=== PATIENT | male | born 1970 | race Two or more races ===

== ENCOUNTER 2020-10-29 07:51 | Outpatient (REF) | payer OTHER, SELFPAY | END 2020-10-29 07:52 | disposition home or self-care (01) | LOC: HO.LAB 07:51 | PROVIDERS: PCP Internal Medicine; Visit Provider Internal Medicine | DX: Z13.89 Encounter for screening for other disorder (principal) ==

== ENCOUNTER 2021-11-24 06:56 | Outpatient (REF) | payer OTHER, SELFPAY ==
[2021-11-24 07:21] LABS: MANUAL DIFF FLAG NO
[2021-11-24 07:39] LABS: Basophils Absolute Auto 0.1 X10*3/uL (0.0-0.2); Basophils Percent Auto 1.6 % (0-2); Eosinophils Absolute Auto 0.2 X10*3/uL (0.0-0.4); Eosinophils Percent Auto 6.3 % (0-4); Hematocrit 42.5 % (42.0-52.0); Hemoglobin 14.6 g/dl (14.0-18.0); Imm Gran Abs Auto 0.01 X10*3/uL (0.00-0.03); Imm Gran Pct Auto 0.3 % (0.0-0.4); Lymphocytes Absolute Auto 1.7 X10*3/uL (1.2-4.9); Lymphocytes Percent Auto 44.4 % (20-40); Mean Corpuscular HGB Conc 34.4 g/dl (31.0-36.0); Mean Corpuscular Hemoglobin 31.3 pg (27.0-33.0); Mean Corpuscular Volume 91.2 fL (80.0-98.0); Mean Platelet Volume 9.1 fL (9.4-12.4); Monocytes Absolute Auto 0.5 X10*3/uL (0.1-1.2); Monocytes Percent Auto 12.1 % (2-11); Neutrophils Absolute Auto 1.4 x10*3/uL (2.0-8.3); Neutrophils Percent Auto 35.3 % (45-73); Platelet Count 267 X10*3/uL (160-400); Red Blood Count 4.66 X10*6/uL (4.60-5.80); Red Cell Distribution Width 13.1 % (11.0-16.0); White Blood Count 3.8 X10*3/uL (4.8-10.8)
[2021-11-24 08:17] LABS: Alanine Aminotransferase 20 U/L (0-40); Albumin Level 4.1 g/dL (3.5-5.0); Alkaline Phosphatase 49 U/L (39-117); Anion Gap 12 (12-20); Aspartate Amino Transferase 28 U/L (5-37); Bilirubin Total 0.3 mg/dL (0.0-1.0); Blood Urea Nitrogen 19 mg/dL (9-16); Calcium 9.7 mg/dL (8.4-10.2); Carbon Dioxide 28 mmol/L (22-29); Chloride 106 mmol/L (96-108); Cholesterol 208 mg/dL; Estimated Glomerular Filt Rate > 60; Glucose Random 112 mg/dL (60-115); HDL Cholesterol 88 mg/dL; LDL Cholesterol Calculated 112 mg/dl; Potassium 5.1 mmol/L (3.3-5.1); Sodium 141 mmol/L (135-145); Triglycerides 44 mg/dL
[2021-11-24 08:38] LABS: Free T4 (Free Thyroxine) 0.83 ng/dL (0.71-1.85); Thyroid Stimulating Hormone 2.38 uIU/mL (0.32-4.0)
[2021-11-24 09:34] LABS: Folate 8.4 ng/mL (> or = 4.0); Vitamin B12 310 pg/mL (200-900)
== END 2021-11-24 06:57 | disposition home or self-care (01) ==
LOC: HO.LAB 06:56
PROVIDERS: PCP Internal Medicine; Visit Provider Internal Medicine
DX: I10 Essential (primary) hypertension (principal); E78.00 Pure hypercholesterolemia, unspecified
CPT/HCPCS: 36415; 80053; 80061; 82607; 82746; 84439; 84443; 85025

== ENCOUNTER 2021-12-20 00:28 | Emergency (ER) | payer OTHER, SELFPAY ==
[2021-12-20 00:40] VITALS: PULSE 92; RESP 18; TEMP 36.4; O2SAT 94; BMI 33.5
[2021-12-20] MEDS: diphenhydrAMINE HCL 25 MG TABLET 50 MG PO ×2 (00:48→02:07)
--- NOTE | 2021-12-20 01:39 | ED.ALLEREA ---
HPI - Allergic Reaction General Chief complaint: Allergic Reaction Stated complaint: Allergic reaction Time Seen by Provider: 12/20/21 01:09 History of Present Illness HPI narrative: 51-year-old male with a history of allergic rhinitis. Patient was cutting trees today. No other changes in environment. Presented at midnight with swelling to the face redness itchiness. Denies any fever chills. No shortness of breath. No changes in speech. Patient from home. There has been no new medication. There is no change in diet. Patient is from home. Admits to drinking 2 beers which is not unusual for Wednesday night for him. No cough no congestion or upper respiratory symptoms. No diaphoresis. Related Data Home Medications Medication Instructions Recorded Confirmed naproxen 500 mg tablet 500 mg PO BID 05/22/20 11/25/21 trazodone 100 mg tablet 100 mg PO BEDTIME PRN 01/28/21 11/25/21 Previous Rx's Medication Instructions Recorded blood pressure monitor #1 ea 01/28/21 lorazepam 0.5 mg tablet 0.5 mg PO DAILY PRN anxiety 2 days 01/28/21 #2 tabs karol.stocking,thigh,reg,med #2 ea 03/12/21 loratadine 10 mg tablet 10 mg PO DAILY 90 days #90 tabs 03/14/21 fluticasone propionate 50 2 spray intranasal DAILY #48 mL 03/15/21 mcg/actuation nasal spray,suspension tramadol 50 mg tablet 50 mg PO TID PRN pain #90 tabs 05/15/21 bupropion HCl 150 mg tablet,12 hr 150 mg PO BID #180 caps 06/26/21 sustained-release docusate sodium 100 mg capsule 100 mg PO DAILY #90 caps 11/05/21 (Colace) zolpidem 10 mg tablet 10 mg PO BEDTIME PRN insomnia 30 11/05/21 days #30 tabs lisinopril 30 mg tablet 30 mg PO DAILY 30 days #30 tabs 11/25/21 diltiazem HCl 180 mg 180 mg PO DAILY #90 caps 12/09/21 capsule,extended release 24 hr omeprazole 20 mg capsule,delayed 20 mg PO DAILY #90 caps 12/09/21 release diphenhydramine HCl 25 mg capsule 25 mg PO Q8H 5 days #15 caps 12/20/21 (Benadryl) epinephrine 0.3 mg/0.3 mL 0.3 mg (0.3 mL) IM ONCE PRN 12/20/21 injection, auto-injector (EpiPen) extreme reaction #1 ea famotidine 20 mg tablet (Pepcid) 20 mg PO BID 5 days #10 tabs 12/20/21 prednisone 20 mg tablet 40 mg PO DAILY #10 tabs 12/20/21 Allergies Allergy/AdvReac Type Severity Reaction Status Date / Time No Known Allergies Allergy Verified 11/25/21 09:48 [No Known Allergies*] Review of Systems Review of Systems: Positive facial swelling positive redness Yes all other systems are reviewed and are negative [facility] Past Medical History Attestation statement: The following information was validated with the patient. Medical History Anxiety and depression Erectile dysfunction GERD (gastroesophageal reflux disease) Hypertension Insomnia Lumbar degenerative disc disease Obstructive sleep apnea Unilateral post-traumatic osteoarthritis, right knee Surgical History No pertinent past surgical history S/P right knee arthroscopy Family History Family History Father Stroke Coronary artery disease Mother Alive and well Family/Other Coronary artery disease Social History Social History Housing: Apartment Alcohol intake: current Alcohol intake frequency: holidays/special occasions only Patient Tobacco Use Status: Former Tobacco user e-Cigarette/Vaping Use: Never Used Second Hand Smoke Exposure: No Advance Directives: No service: No Current occupational status: unemployed Cognitive needs: No Hearing needs: No Vision needs: No Physical Exam ED Vital Signs: Vital Signs - 24 hr 12/20/21 00:40 12/20/21 03:18 Temperature 97.6 F Pulse Rate 92 90 Respiratory Rate 18 16 Blood Pressure 125/73 Pulse Oximetry 94 98 Oxygen Delivery Method Room Air Room Air BMI result Body Mass Index 33.5 Appearance: Alert. Oriented X3. No acute distress. Eyes: Pupils equal, round and reactive to light. ENT: Pharynx normal. Neck: Normal inspection. Neck supple. No lymph nodes noted. No crepitus CVS: Normal heart rate and rhythm. Pulses normal. Normal S1 and S2 Respiratory: No respiratory distress. Breath sounds normal. No Wheezing. No rales Abdomen: Soft and nontender. No rigidity. No distention. good BS x4 Skin: Diffuse erythematous rash. Posterior pharynx is normal. There is no mucosal membrane involvement. Extremities: No lower extremity edema. Neurovascular intact to all extremities. No Lacerations. No Rash Neuro: Oriented X 3. No motor deficit. No sensory deficit. Moving all extermities. No slurred speech MDM - Allergic Reaction MDM Narrative Medical decision making narrative: Patient monitor the emergency department for 3 hours. No acute distress lungs are clear patient is sleeping redness has subsided. We will give allergic reaction medication including steroid, Benadryl, Pepcid. EpiPen. Follow-up on an outpatient basis. Medical Records Attestation: I reviewed the patient's medical records. Lab Data Attestation: I reviewed the patient's lab results. Discharge Plan Discharge Clinical Impression: Allergic reaction Patient Disposition: Home, Self-Care Instructions: General Allergic Reaction (ED) Prescriptions: New prednisone 20 mg tablet 40 mg PO DAILY Qty: 10 0RF famotidine [Pepcid] 20 mg tablet 20 mg PO BID 5 Days Qty: 10 0RF diphenhydramine HCl [Benadryl] 25 mg capsule 25 mg PO Q8H 5 Days Qty: 15 0RF epinephrine [EpiPen] 0.3 mg/0.3 mL auto-injector 0.3 mg IM ONCE PRN (Reason: extreme reaction) Qty: 1 0RF Rx Instructions: for 2 doses No Action lorazepam 0.5 mg tablet 0.5 mg PO DAILY PRN (Reason: anxiety) 2 Days Qty: 2 0RF Rx Instructions: To be used before flight. (DME) karol.stocking,thigh,reg,med Misc See Rx Instructions .Route Qty: 2 4RF Rx Instructions: As directed 20-30 mm HG loratadine 10 mg tablet 10 mg PO DAILY 90 Days Qty: 90 0RF fluticasone propionate 50 mcg/actuation spray,suspension 2 spray intranasal DAILY Qty: 48 2RF bupropion HCl 150 mg tablet sustained-release 12 hr 150 mg PO BID Qty: 180 1RF docusate sodium [Colace] 100 mg capsule 100 mg PO DAILY Qty: 90 3RF zolpidem 10 mg tablet 10 mg PO BEDTIME PRN (Reason: insomnia) 30 Days Qty: 30 1RF omeprazole 20 mg capsule,delayed release(DR/EC) 20 mg PO DAILY Qty: 90 2RF diltiazem HCl 180 mg capsule,extended release 24hr 180 mg PO DAILY Qty: 90 1RF naproxen 500 mg tablet 500 mg PO BID trazodone 100 mg tablet 100 mg PO BEDTIME PRN (DME) blood pressure monitor Kit See Rx Instructions .ROUTE .MEDSUPPLY Qty: 1 0RF Rx Instructions: As directed tramadol 50 mg tablet 50 mg PO TID PRN (Reason: pain) Qty: 90 1RF lisinopril 30 mg tablet 30 mg PO DAILY 30 Days Qty: 30 3RF Referrals: Po,Tenzin Colón MD [Primary Care Provider] -
[2021-12-20] MEDS: predniSONE 20 MG TABLET 60 MG PO (02:07)
[2021-12-20] MEDS: Famotidine 20 MG TABLET PO (02:07)
[2021-12-20 03:18] VITALS: BP 125/73; PULSE 90; RESP 16; O2SAT 98
== END 2021-12-20 04:36 | disposition home or self-care (01) ==
PROVIDERS: Emergency Provider Emergency Medicine Emergency Medical Services; PCP Internal Medicine
DX: T78.40XA Allergy, unspecified, initial encounter (principal); X58.XXXA Exposure to other specified factors, initial encounter; I10 Essential (primary) hypertension
CPT/HCPCS: 99283; Q0163

== ENCOUNTER 2021-12-23 18:00 | Emergency (ER) | payer OTHER, SELFPAY ==
[2021-12-23 18:08] VITALS: BP 153/93; PULSE 108; RESP 18; TEMP 36.8; O2SAT 98; BMI 30.7
[2021-12-23 23:09] VITALS: BP 157/112; PULSE 85; RESP 20; O2SAT 100
--- NOTE | 2021-12-23 23:11 | ED_ITS ---
HPI - Neuro Symptoms/Deficit General Chief Complaint: Neuro Symptoms/Deficit Stated Complaint: spasms in head/no pain Time Seen by Provider: 12/23/21 20:12 Source: patient Mode of arrival: ambulatory Limitations: no limitations History of Present Illness HPI Narrative: Patient comes to the emergency room complaining of intermittent twitching/spasms on his head on the temporal side. Patient states it does hurt, once in a while he feels his skin twitching. Patient denies headache, no other neurological symptoms. Patient denies any recent illnesses Related Data Home Medications Medication Instructions Recorded Confirmed naproxen 500 mg tablet 500 mg PO BID 05/22/20 11/25/21 trazodone 100 mg tablet 100 mg PO BEDTIME PRN 01/28/21 11/25/21 Previous Rx's Medication Instructions Recorded blood pressure monitor #1 ea 01/28/21 lorazepam 0.5 mg tablet 0.5 mg PO DAILY PRN anxiety 2 days 01/28/21 #2 tabs karol.stocking,thigh,reg,med #2 ea 03/12/21 loratadine 10 mg tablet 10 mg PO DAILY 90 days #90 tabs 03/14/21 fluticasone propionate 50 2 spray intranasal DAILY #48 mL 03/15/21 mcg/actuation nasal spray,suspension tramadol 50 mg tablet 50 mg PO TID PRN pain #90 tabs 05/15/21 bupropion HCl 150 mg tablet,12 hr 150 mg PO BID #180 caps 06/26/21 sustained-release docusate sodium 100 mg capsule 100 mg PO DAILY #90 caps 11/05/21 (Colace) zolpidem 10 mg tablet 10 mg PO BEDTIME PRN insomnia 30 11/05/21 days #30 tabs lisinopril 30 mg tablet 30 mg PO DAILY 30 days #30 tabs 11/25/21 diltiazem HCl 180 mg 180 mg PO DAILY #90 caps 12/09/21 capsule,extended release 24 hr omeprazole 20 mg capsule,delayed 20 mg PO DAILY #90 caps 12/09/21 release diphenhydramine HCl 25 mg capsule 25 mg PO Q8H 5 days #15 caps 12/20/21 (Benadryl) epinephrine 0.3 mg/0.3 mL 0.3 mg (0.3 mL) IM ONCE PRN 12/20/21 injection, auto-injector (EpiPen) extreme reaction #1 ea famotidine 20 mg tablet (Pepcid) 20 mg PO BID 5 days #10 tabs 12/20/21 prednisone 20 mg tablet 40 mg PO DAILY #10 tabs 12/20/21 Allergies Allergy/AdvReac Type Severity Reaction Status Date / Time No Known Allergies Allergy Verified 12/23/21 18:06 [No Known Allergies*] Review of Systems Review of Systems: Constitutional : No Weight loss, No Fever, No Chills, No Night Sweats, No Fatigue, No Malaise ENT/Mouth : No Hearing loss, No Ear Pain, No Nasal Congestion, No Sinus Pain, No Hoarseness, No sore throat, No Rhinorrhea, No Swallowing Difficulty Eyes: No Eye Pain, No Swelling, No Redness, No Foreign Body, No Discharge, No Vision Changes Cardiovascular : No Chest Pain, No SOB, No Dyspnea on Exertion, No Orthopnea, No Edema, No Palpitations Respiratory : No Cough, No Sputum, No Wheezing, No Smoke Exposure, No Dyspnea Gastrointestinal : No Nausea, No Vomiting, No Diarrhea, No Constipation, No abdominal Pain, No Hematochezia, No Melena Genitourinary : no irregular bleeding, No Dysuria, No Urinary Frequency, No Hematuria, No Urinary Incontinence, No Urgency, No Flank Pain, No Urinary Flow Changes, No Hesitancy Musculoskeletal : No joint pain, No Myalgias, No Joint Swelling Skin : No Skin Lesions, No rash Neuro : No Weakness, No Numbness, No Paresthesias, No Loss of Consciousness, No Dizziness, No Headache, intermittent spasms/stretching of the skin/muscles in the head/temporal area bilateral Psych : No Anxiety/Panic, No Depression, No SI/HI/AH/VH, No Social Issues, Heme/Lymph: No Bruising, No Bleeding,No Lymphadenopathy Endocrine : No Polyuria, No Polydipsia, No Temperature Intolerance [facility] Past Medical History Medical History Anxiety and depression Erectile dysfunction Lumbar degenerative disc disease Obstructive sleep apnea Surgical History No pertinent past surgical history S/P right knee arthroscopy Family History Family History Father Stroke Coronary artery disease Mother Alive and well Family/Other Coronary artery disease Social History Social History Housing: Apartment Alcohol intake: current Alcohol intake frequency: holidays/special occasions only Patient Tobacco Use Status: Former Tobacco user e-Cigarette/Vaping Use: Never Used Second Hand Smoke Exposure: No Advance Directives: No Advance Directives Information Provided: No service: No Current occupational status: unemployed Cognitive needs: No Hearing needs: No Vision needs: No Physical Exam Vital Signs: Vital Signs: Last Vital Signs Temp 98.2 F 12/23/21 18:08 Pulse 63 12/24/21 01:02 Resp 16 12/24/21 01:02 BP 133/86 12/24/21 01:02 Pulse Ox 99 12/24/21 01:02 O2 Del Method 12/24/21 01:02 BMI result Body Mass Index 30.7 Const: Other: Appearance: Alert. Oriented X3. No acute distress. Eyes: Pupils equal, round and reactive to light. ENT: Pharynx normal. Neck: Normal inspection. Neck supple. No lymph nodes noted. No crepitus CVS: Normal heart rate and rhythm. Pulses normal. Normal S1 and S2 Respiratory: No respiratory distress. Breath sounds normal. No Wheezing. No rales Abdomen: Soft and nontender. No rigidity. No distention. Skin: Skin warm and dry. Normal skin color. Normal skin turgor. Extremities: No lower extremity edema. No Lacerations. No Rash Neuro: Oriented X 3. No motor deficit. No sensory deficit. Moving all extremities. No slurred speech. CN 2 through 12 grossly intact Psych: calm, cooperative, normal affect Course Course Course Narrative: At this time, patient is asymptomatic. Patient likely experiencing muscle spasms. Labs pending. Patient's hematology and chemistry lobster not show any acute pathology. ESR and CRP are not necessary at this time, patient has no temporal pain at all. Giant cell arteritis not suspected. MDM - Neuro Symptoms/Deficit Lab Data Result diagrams: 12/24/21 00:31 12/24/21 00:31 Labs: Lab Results 12/24/21 12/24/21 Range/Units 00:31 00:31 WBC 6.5 (4.8-10.8) X10*3/uL RBC 4.75 (4.60-5.80) X10*6/uL Hgb 14.5 (14.0-18.0) g/dl Hct 43.1 (42.0-52.0) % MCV 90.7 (80.0-98.0) fL MCH 30.5 (27.0-33.0) pg MCHC 33.6 (31.0-36.0) g/dl RDW 12.8 (11.0-16.0) % Plt Count 206 (160-400) X10*3/uL MPV 8.5 L (9.4-12.4) fL Immature Gran % (Auto) 0.5 H (0.0-0.4) % Neut % (Auto) 60.0 (45-73) % Lymph % (Auto) 28.6 (20-40) % Weak[place] % (Auto) 10.1 (2-11) % Eos % (Auto) 0.3 (0-4) % Baso % (Auto) 0.5 (0-2) % Lymph # (Auto) 1.9 (1.2-4.9) X10*3/uL [place] # (Auto) 0.7 (0.1-1.2) X10*3/uL Eos # (Auto) 0.0 (0.0-0.4) X10*3/uL Baso # (Auto) 0.0 (0.0-0.2) X10*3/uL Abs Immat Gran (auto) 0.03 (0.00-0.03) X10*3/uL Absolute Neuts (auto) 3.9 (2.0-8.3) x10*3/uL Absolute Nucleated RBC 0.000 (0.0-0.012) X10*3/uL Nucleated RBC % (auto) 0.0 (0.0-0.2) /100WBC Sodium 137 (135-145) mmol/L Potassium 4.5 (3.3-5.1) mmol/L Chloride 100 (96-108) mmol/L Carbon Dioxide 28 (22-29) mmol/L Anion Gap 14 (12-20) BUN 24 H (9-16) mg/dL Creatinine 0.90 (0.5-1.4) mg/dL Estim Creat Clear Calc 104.4 Estimated GFR > 60 Random Glucose 92 (60-115) mg/dL Calcium 9.4 (8.4-10.2) mg/dL Magnesium 2.2 (1.6-2.6) mg/dL Discharge Plan Discharge Clinical Impression: Muscle twitch Patient Disposition: Home, Self-Care Instructions: Muscle Spasm (ED) Additional Instructions: Please follow-up with your primary care physician tomorrow. If you have any worsening or new symptoms, please return to the emergency room or call 911 Prescriptions: No Action lorazepam 0.5 mg tablet 0.5 mg PO DAILY PRN (Reason: anxiety) 2 Days Qty: 2 0RF Rx Instructions: To be used before flight. (DME) karol.stocking,thigh,reg,med Misc See Rx Instructions .Route Qty: 2 4RF Rx Instructions: As directed 20-30 mm HG loratadine 10 mg tablet 10 mg PO DAILY 90 Days Qty: 90 0RF fluticasone propionate 50 mcg/actuation spray,suspension 2 spray intranasal DAILY Qty: 48 2RF bupropion HCl 150 mg tablet sustained-release 12 hr 150 mg PO BID Qty: 180 1RF docusate sodium [Colace] 100 mg capsule 100 mg PO DAILY Qty: 90 3RF zolpidem 10 mg tablet 10 mg PO BEDTIME PRN (Reason: insomnia) 30 Days Qty: 30 1RF omeprazole 20 mg capsule,delayed release(DR/EC) 20 mg PO DAILY Qty: 90 2RF diltiazem HCl 180 mg capsule,extended release 24hr 180 mg PO DAILY Qty: 90 1RF prednisone 20 mg tablet 40 mg PO DAILY Qty: 10 0RF famotidine [Pepcid] 20 mg tablet 20 mg PO BID 5 Days Qty: 10 0RF diphenhydramine HCl [Benadryl] 25 mg capsule 25 mg PO Q8H 5 Days Qty: 15 0RF epinephrine [EpiPen] 0.3 mg/0.3 mL auto-injector 0.3 mg IM ONCE PRN (Reason: extreme reaction) Qty: 1 0RF Rx Instructions: for 2 doses naproxen 500 mg tablet 500 mg PO BID trazodone 100 mg tablet 100 mg PO BEDTIME PRN (DME) blood pressure monitor Kit See Rx Instructions .ROUTE .MEDSUPPLY Qty: 1 0RF Rx Instructions: As directed tramadol 50 mg tablet 50 mg PO TID PRN (Reason: pain) Qty: 90 1RF lisinopril 30 mg tablet 30 mg PO DAILY 30 Days Qty: 30 3RF
[2021-12-24 00:35] LABS: MANUAL DIFF FLAG NO
[2021-12-24 00:36] LABS: Basophils Percent Auto 0.5 % (0-2); Eosinophils Percent Auto 0.3 % (0-4); Hematocrit 43.1 % (42.0-52.0); Hemoglobin 14.5 g/dl (14.0-18.0); Imm Gran Abs Auto 0.03 X10*3/uL (0.00-0.03); Imm Gran Pct Auto 0.5 % (0.0-0.4); Lymphocytes Absolute Auto 1.9 X10*3/uL (1.2-4.9); Lymphocytes Percent Auto 28.6 % (20-40); Mean Corpuscular HGB Conc 33.6 g/dl (31.0-36.0); Mean Corpuscular Hemoglobin 30.5 pg (27.0-33.0); Mean Corpuscular Volume 90.7 fL (80.0-98.0); Mean Platelet Volume 8.5 fL (9.4-12.4); Monocytes Absolute Auto 0.7 X10*3/uL (0.1-1.2); Monocytes Percent Auto 10.1 % (2-11); Neutrophils Absolute Auto 3.9 x10*3/uL (2.0-8.3); Platelet Count 206 X10*3/uL (160-400); Red Blood Count 4.75 X10*6/uL (4.60-5.80); Red Cell Distribution Width 12.8 % (11.0-16.0); White Blood Count 6.5 X10*3/uL (4.8-10.8)
[2021-12-24 00:52] LABS: Anion Gap 14 (12-20); Blood Urea Nitrogen 24 mg/dL (9-16); Calcium 9.4 mg/dL (8.4-10.2); Carbon Dioxide 28 mmol/L (22-29); Chloride 100 mmol/L (96-108); Creatinine Clr Calc Pharmacy 104.4; Estimated Glomerular Filt Rate > 60; Glucose Random 92 mg/dL (60-115); Magnesium 2.2 mg/dL (1.6-2.6); Potassium 4.5 mmol/L (3.3-5.1); Sodium 137 mmol/L (135-145)
[2021-12-24 01:02] VITALS: BP 133/86; PULSE 63; RESP 16; O2SAT 99
--- NOTE | 2021-12-24 01:25 | PC.NURSE ---
Reviewed discharge instructions with pt. pt verbalized understanding. Reported off to BHARAT Coello
--- NOTE | 2021-12-24 01:27 | PC.NURSE ---
pt a&o, no sob or chest pain. pt able to ambulate with a steady walk at discharge. Report to BHARAT Coello
== END 2021-12-24 01:28 | disposition home or self-care (01) ==
PROVIDERS: Emergency Provider Emergency Medicine; PCP Internal Medicine
DX: R25.2 Cramp and spasm (principal); I10 Essential (primary) hypertension
CPT/HCPCS: 36415; 80048; 83735; 85025; 99283; 99284

== ENCOUNTER → 2022-01-05 09:52 | Outpatient (BNVA) | payer OTHER, SELFPAY | PROVIDERS: PCP Internal Medicine; Visit Provider Dietitian, Registered | DX: R73.01 Impaired fasting glucose (principal); Z71.3 Dietary counseling and surveillance | CPT/HCPCS: 97802 ==

== ENCOUNTER 2022-01-09 09:51 | Day surgery (SDC) | payer OTHER, SELFPAY ==
[2022-01-05 15:53] VITALS: BMI 29.7
--- NOTE | 2022-01-08 09:48 | P.CONAN_ITS ---
Documented by User: Keli Birmingham NP 01/08/22 09:49 HPI - Anesthesia Eval Consult details Narrative: 51yo M for Colonoscopy [facility] Active Problems Active Problems: All Active Problems (Updated 12/25/21 @ 00:02 by Ermelinda Pearce) Headache (Acute) Obesity (BMI 30.0-34.9) (Acute) Impaired fasting blood sugar (Acute) Occasional tremors (Acute) Colon cancer screening (Acute) Epistaxis (Acute) Allergic rhinitis (Acute) Varicose veins of both lower extremities (Acute) Generalized anxiety disorder (Acute) GERD (gastroesophageal reflux disease) (Acute) Hypertension (Acute) Unilateral post-traumatic osteoarthritis, right knee (Acute) Insomnia (Acute) Past Medical History Medical History Anxiety and depression Erectile dysfunction Lumbar degenerative disc disease Obstructive sleep apnea Family History Family History Father Stroke Coronary artery disease Mother Alive and well Family/Other Coronary artery disease Surgical History Surgical History No pertinent past surgical history S/P right knee arthroscopy Social History Social History Housing: Apartment Alcohol intake: current Alcohol intake frequency: holidays/special occasions only Patient Tobacco Use Status: Former Tobacco user Smoked in Last 30 Days: No e-Cigarette/Vaping Use: Never Used Second Hand Smoke Exposure: No Use of substances other than those prescribed or required for medical reasons: No Are you DNR?: No Advance Directives: No Advance Directives Information Provided: Yes service: No Current occupational status: unemployed Cognitive needs: No Hearing needs: No Vision needs: No Meds Allergies Allergy/AdvReac Type Severity Reaction Status Date / Time No Known Allergies Allergy Verified 12/23/21 18:06 [No Known Allergies*] Home Medications Medication Instructions Recorded Confirmed Last Taken Type naproxen 500 mg tablet 500 mg PO BID 05/22/20 11/25/21 Unknown History trazodone 100 mg tablet 100 mg PO BEDTIME PRN 01/28/21 11/25/21 Unknown History Exam Exam Date and Time: January 08, 2022 0948 Height,Weight and Vital Signs: Height 5 ft 7 in Weight 86.183 kg Pertinent Lab Results Pertinent Lab Results: Laboratory Tests 12/24/21 12/24/21 00:31 00:31 WBC 6.5 Hgb 14.5 Hct 43.1 Plt Count 206 Sodium 137 Potassium 4.5 Chloride 100 Carbon Dioxide 28 BUN 24 H Creatinine 0.90 Assessment and Plan Assessment Anesthesia Assessment: Chart Reviewed Documented by User: Don Roy MD 01/09/22 13:28 [facility] Past Medical History Medical History Anxiety and depression Erectile dysfunction Lumbar degenerative disc disease Obstructive sleep apnea Family History Family History Father Stroke Coronary artery disease Mother Alive and well Family/Other Coronary artery disease Family history of problems with anesthesia: No Surgical History Surgical History No pertinent past surgical history S/P right knee arthroscopy History of Problems with Anesthesia: No Social History Social History Housing: Apartment Alcohol intake: current Alcohol intake frequency: holidays/special occasions only Patient Tobacco Use Status: Former Tobacco user Smoked in Last 30 Days: No e-Cigarette/Vaping Use: Never Used Second Hand Smoke Exposure: No Use of substances other than those prescribed or required for medical reasons: No Are you DNR?: No Advance Directives: No Advance Directives Information Provided: Yes service: No Current occupational status: unemployed Cognitive needs: No Hearing needs: No Vision needs: No Meds Allergies Allergy/AdvReac Type Severity Reaction Status Date / Time No Known Allergies Allergy Verified 12/23/21 18:06 [No Known Allergies*] Home Medications Medication Instructions Recorded Confirmed Last Taken Type naproxen 500 mg tablet 500 mg PO BID 05/22/20 11/25/21 Unknown History trazodone 100 mg tablet 100 mg PO BEDTIME PRN 01/28/21 11/25/21 Unknown History Exam Airway Mallampati Class: III TM Dist: >3cm Neck ROM: Full Partial: Upper and Lower Loose/Missing/Broken Teeth: Yes Heart: S1,S2 Lungs: b/l breath spounds Assessment and Plan Assessment Anesthesia Assessment: Anesthesia Plan Discussed Final Anesthetic Review Family History of Problems with Anesthesia: No History of Problems with Anesthesia: No NPO: Yes ASA Class: II Final Preanesthetic Review: Meds/Allgs Chart Reviewed, Consent Obtained/Reviewed and Anes Risks/Benef Reviewed Patient Risk: Intermediate Procedure Risk: Intermediate Anesthetic Plan Anesthetic Plan: MAC: Disposition: Standard PACU
[2022-01-09 10:37] VITALS: BMI 30.8
[2022-01-09 10:46] VITALS: BP 164/90; PULSE 79; RESP 16; TEMP 36.5; O2SAT 100
[2022-01-09] MEDS: Lactated Ringers 1,000 ML 100 ML IVCONT (11:04)
--- NOTE | 2022-01-09 11:29 | MHC.SHP ---
Pre-Procedural Eval Section A Date of Service: 01/09/22 The patient is an INPATIENT: No Changes since office visit: No Cold of Flu in the past 2 weeks, No New Medical Problems, No Changes in Medication and No Patient answered all questions The History & Physical has been completed within 30 days and I have reviewed it.: Yes Section B Chief Complaint: screening Allergies: Allergies Allergy/AdvReac Type Severity Reaction Status Date / Time No Known Allergies Allergy Verified 12/23/21 18:06 [No Known Allergies*] Plan I have reviewed the history and physical and performed a pertinent physical examination on my patient. No changes have occurred unless specified.
[2022-01-09 12:00] VITALS: BP 91/56; PULSE 86; RESP 16; TEMP 36.7; O2SAT 97
[2022-01-09 12:15] VITALS: BP 116/77; PULSE 90; RESP 17; O2SAT 99
[2022-01-09 12:27] VITALS: BP 127/84; PULSE 84; RESP 18; TEMP 36.7; O2SAT 99
--- NOTE | 2022-01-09 21:20 | OP_ITS ---
SURGEON: Monty Ramirez MD INDICATIONS: Colon cancer screening. PREOPERATIVE DIAGNOSIS: POSTOPERATIVE DIAGNOSIS: PROCEDURE PERFORMED: ESTIMATED BLOOD LOSS: COMPLICATIONS: ANESTHESIA: ASSISTANTS: SPECIMENS: PROCEDURE: Colonoscopy to the terminal ileum with biopsy. MEDICATIONS: Monitored anesthesia care. DESCRIPTION OF PROCEDURE: The history and physical performed. The risks and benefits of the procedure were explained to the patient. Informed consent was obtained. The patient was placed in the left lateral decubitus position. A digital rectal exam was performed and was found to be normal. The Olympus pediatric video colonoscope was introduced into the rectum and advanced to the cecum without difficulty. The cecum was identified by transillumination, palpation, and identification of ileocecal valve. Examination was performed. The scope was removed. He tolerated the procedure well and was taken to recovery area in stable condition. FINDINGS: The terminal ileum was normal. There was some stool coating the mucosa in the right colon. This was washed and suctioned. A single polyp measuring less than 5 mm was identified at 35 cm from the anal verge and removed with biopsy forceps. No other polyps were identified. There was scattered diverticulosis. Retroflexed examination showed some small internal hemorrhoids. IMPRESSION: Colon polyp. RECOMMENDATIONS: Follow up the biopsy results. MD DEBRA Harrison/ZAIDA / [id number]
== END 2022-01-09 12:59 | disposition home or self-care (01) ==
PROVIDERS: PCP Internal Medicine; Visit Provider Internal Medicine Gastroenterology
PROC: 0DJD8ZZ Inspection of Lower Intestinal Tract, Via Natural or Artificial Opening Endoscopic (ICD-10-PCS; CPT 45378; principal; 2022-01-09 11:00)
DX: Z12.11 Encounter for screening for malignant neoplasm of colon (principal); D12.5 Benign neoplasm of sigmoid colon; K57.30 Diverticulosis of large intestine without perforation or abscess without bleeding; K64.8 Other hemorrhoids; K21.9 Gastro-esophageal reflux disease without esophagitis; I10 Essential (primary) hypertension; G47.00 Insomnia, unspecified; Z79.899 Other long term (current) drug therapy; Z79.1 Long term (current) use of non-steroidal anti-inflammatories (NSAID); Z87.891 Personal history of nicotine dependence
CPT/HCPCS: 45380; 88305; J2250; J3010

== ENCOUNTER 2022-03-17 21:23 | Emergency (ER) | payer OTHER, SELFPAY ==
--- NOTE | ~2022-03-17 | XR_ITS ---
EXAMINATION: XR CHEST CLINICAL INFORMATION: Chest pain. COMPARISON: 08/30/2017 TECHNIQUE: Frontal view of the chest was obtained. FINDINGS: Chronic elevation of the right hemidiaphragm. No consolidation, edema, or effusion. No pneumothorax. The cardiomediastinal silhouette is within normal limits. No acute osseous abnormality. XR/XR chest 1V IMPRESSION: No acute pulmonary finding.
--- NOTE | 2022-03-17 21:34 | ECG_ITS ---
Test Reason : CHEST PAIN Blood Pressure : / mmHG Vent. Rate : 086 BPM Atrial Rate : 086 BPM P-R Int : 170 ms QRS Dur : 090 ms QT Int : 380 ms P-R-T Axes : 039 051 045 degrees QTc Int : 454 ms Normal sinus rhythm Normal ECG When compared with ECG of 31-AUG-2017 08:21, Nonspecific ST and T wave abnormality is no longer Present Heart rate has decreased Referred By: Generic ED Physician Electronically Signed By:KARENA MOSQUEDA
[2022-03-17 21:35] VITALS: BP 118/81; PULSE 95; RESP 18; TEMP 35.9; O2SAT 98; BMI 31.3
[2022-03-17 21:55] LABS: MANUAL DIFF FLAG NO
[2022-03-17 21:57] LABS: Basophils Absolute Auto 0.1 X10*3/uL (0.0-0.2); Eosinophils Absolute Auto 0.2 X10*3/uL (0.0-0.4); Eosinophils Percent Auto 3.8 % (0-4); Hematocrit 37.8 % (42.0-52.0); Hemoglobin 13.2 g/dl (14.0-18.0); Imm Gran Abs Auto 0.01 X10*3/uL (0.00-0.03); Imm Gran Pct Auto 0.2 % (0.0-0.4); Lymphocytes Absolute Auto 2.1 X10*3/uL (1.2-4.9); Lymphocytes Percent Auto 43.3 % (20-40); Mean Corpuscular HGB Conc 34.9 g/dl (31.0-36.0); Mean Corpuscular Hemoglobin 30.5 pg (27.0-33.0); Mean Corpuscular Volume 87.3 fL (80.0-98.0); Mean Platelet Volume 8.3 fL (9.4-12.4); Monocytes Absolute Auto 0.5 X10*3/uL (0.1-1.2); Monocytes Percent Auto 10.8 % (2-11); Neutrophils Percent Auto 40.9 % (45-73); Platelet Count 215 X10*3/uL (160-400); Red Blood Count 4.33 X10*6/uL (4.60-5.80); White Blood Count 4.8 X10*3/uL (4.8-10.8)
[2022-03-17 22:15] LABS: Troponin-I High Sensitivity < 3.5 ng/L (<3.5-35.0)
[2022-03-17 22:16] LABS: Anion Gap 21 (12-20); Blood Urea Nitrogen 6 mg/dL (9-16); Calcium 8.3 mg/dL (8.4-10.2); Carbon Dioxide 17 mmol/L (22-29); Chloride 98 mmol/L (96-108); Creatinine Clr Calc Pharmacy 104.3; Estimated Glomerular Filt Rate > 60; Glucose Random 106 mg/dL (60-115); Potassium 4.6 mmol/L (3.3-5.1); Sodium 131 mmol/L (135-145)
--- NOTE | 2022-03-17 23:10 | PC.NURSE ---
Pt states that he had a sharp pain in his chest that has since resolved. He stated it could have been due to having anxiety. Pt states he has a h/o anxiety. Pt denies pain at this time. He is resting quietly.
--- NOTE | 2022-03-17 23:10 | ED_ITS ---
HPI - Chest Pain General Chief Complaint: Chest Pain Stated Complaint: chest pain, high blood pressure, trouble breathing Time Seen by Provider: 03/17/22 23:10 Source: patient Limitations: no limitations History of Present Illness HPI narrative: This is a 51-year-old male with a history of hypertension who for 3 days has had some head discomfort, throbbing headache. The patient has been taking his blood pressure medicine. Tonight around 21:00 he developed a feeling of pain in the middle of his chest. He did vomit once. He denies any shortness of breath or sweats or radiation of the pain. He he does have an appointment to see his primary care physician this Wednesday. He also notes a history of depression and anxiety as well as GERD. He denies elevated cholesterol, diabetes. He is not a smoker. His father had a heart attack. Related Data Previous Rx's Medication Instructions Recorded blood pressure monitor #1 ea 01/28/21 karol.stocking,thigh,reg,med #2 ea 03/12/21 fluticasone propionate 50 2 spray intranasal DAILY #48 mL 03/15/21 mcg/actuation nasal spray,suspension tramadol 50 mg tablet 50 mg PO TID PRN pain #90 tabs 05/15/21 bupropion HCl 150 mg tablet,12 hr 150 mg PO BID #180 caps 06/26/21 sustained-release docusate sodium 100 mg capsule 100 mg PO DAILY #90 caps 11/05/21 (Colace) zolpidem 10 mg tablet 10 mg PO BEDTIME PRN insomnia 30 11/05/21 days #30 tabs diltiazem HCl 180 mg 180 mg PO DAILY #90 caps 12/09/21 capsule,extended release 24 hr omeprazole 20 mg capsule,delayed 20 mg PO DAILY #90 caps 12/09/21 release diphenhydramine HCl 25 mg capsule 25 mg PO Q8H 5 days #15 caps 12/20/21 (Benadryl) epinephrine 0.3 mg/0.3 mL 0.3 mg (0.3 mL) IM ONCE PRN 12/20/21 injection, auto-injector (EpiPen) extreme reaction #1 ea sertraline 25 mg tablet 25 mg PO DAILY #30 tabs 01/30/22 tizanidine 4 mg tablet 4 mg PO BEDTIME PRN muscle 01/30/22 spasticity #20 tabs lisinopril 30 mg tablet 30 mg PO DAILY 30 days #90 tabs 02/17/22 Allergies Allergy/AdvReac Type Severity Reaction Status Date / Time No Known Allergies Allergy Verified 03/17/22 21:35 [No Known Allergies*] Review of Systems Review of Systems: Yes all other systems are reviewed and are negative Constitutional: Constitutional: Reports as per HPI, Denies fever(s) and Reports headache(s) Eyes: Eyes: Reports as per HPI and Reports no additional eye complaints ENT: Reports system reviewed and no additional complaints, except as documented, Reports as per HPI, Reports headache(s), Denies nasal congestion, Denies nasal discharge and Denies sore throat Cardiovascular: Cardiovascular: Reports as per HPI, Reports chest pain and Denies dyspnea Respiratory: Respiratory: Reports as per HPI, Denies cough and Denies dyspnea Gastrointestinal: Gastrointestinal: Reports as per HPI, Denies abdominal pain, Denies diarrhea and Denies vomiting Genitourinary: Genitourinary: Reports as per HPI, Denies hematuria, Denies dysuria and Denies urinary frequency Musculoskeletal: Musculoskeletal: Reports no additional musculoskeletal complaints and Denies numbness Integumentary/Breasts: Skin/Breast: Reports as per HPI and Denies rash Neurologic: Reports as per HPI, Reports headache(s), Denies focal weakness and Denies numbness Psychiatric: Psychiatric: Reports no additional psychiatric complaints and Reports as per HPI Endocrine: Endocrine: Reports no additional endocrine complaints and Reports as per HPI Hematologic/Lymphatic: Hematologic/Lymphatic: Reports no additional hematologic/lymphatic complaints, Reports as per HPI and Reports other (No peripheral edema) [facility] Past Medical History Medical History (Updated 03/18/22 @ 00:38 by Lui Thomas MD) Anxiety and depression Colon cancer screening Erectile dysfunction GERD (gastroesophageal reflux disease) Hypertension Insomnia Lumbar degenerative disc disease Obstructive sleep apnea Unilateral post-traumatic osteoarthritis, right knee Surgical History No pertinent past surgical history S/P right knee arthroscopy Family History Family History Father Stroke Coronary artery disease Mother Alive and well Family/Other Coronary artery disease Social History Social History Housing: Apartment Alcohol intake: current Alcohol intake frequency: holidays/special occasions o nly Patient Tobacco Use Status: Former Tobacco user e-Cigarette/Vaping Use: Never Used Second Hand Smoke Exposure: No Advance Directives: No Advance Directives Information Provided: No service: No Current occupational status: unemployed Cognitive needs: No Hearing needs: No Vision needs: No Physical Exam Vital Signs: Vital Signs: Last Vital Signs Temp 97.3 F 03/18/22 00:36 Pulse 89 03/18/22 00:36 Resp 16 03/18/22 00:36 BP 119/79 03/18/22 00:36 Pulse Ox 99 03/18/22 00:36 O2 Del Method 03/18/22 00:36 BMI result Body Mass Index 31.3 Const: Other: PERRLA Conj Brogan Mucous membranes moist Throat clear Neck supple Lungs CTA Heart RRR no murmurs rubs or gallops Abd soft, non tender, non distended Extremities no pitting edema Neuro alert and oriented x 3, non focal MDM - Chest Pain MDM Narrative Medical decision making narrative: Patient with a history of hypertension, also anxiety, has had a headache for 3 days and felt his blood pressure might be elevated. Patient developed chest pain around 21:00 tonight. EKG shows no concerning findings. Troponin x2 were negative. Patient does appear to have anxiety component. Patient is safe for outpatient follow-up Lab Data Attestation: I reviewed the patient's lab results. Result diagrams: 03/17/22 21:46 03/17/22 21:46 Labs: Lab Results 03/17/22 03/17/22 03/17/22 Range/Units 21:46 21:46 21:46 WBC 4.8 (4.8-10.8) X10*3/uL RBC 4.33 L (4.60-5.80) X10*6/uL Hgb 13.2 L (14.0-18.0) g/dl Hct 37.8 L (42.0-52.0) % MCV 87.3 (80.0-98.0) fL MCH 30.5 (27.0-33.0) pg MCHC 34.9 (31.0-36.0) g/dl RDW 13.0 (11.0-16.0) % Plt Count 215 (160-400) X10*3/uL MPV 8.3 L (9.4-12.4) fL Immature Gran % (Auto) 0.2 (0.0-0.4) % Neut % (Auto) 40.9 L (45-73) % Lymph % (Auto) 43.3 H (20-40) % [place] % (Auto) 10.8 (2-11) % Eos % (Auto) 3.8 (0-4) % Baso % (Auto) 1.0 (0-2) % Lymph # (Auto) 2.1 (1.2-4.9) X10*3/uL [place] # (Auto) 0.5 (0.1-1.2) X10*3/uL Eos # (Auto) 0.2 (0.0-0.4) X10*3/uL Baso # (Auto) 0.1 (0.0-0.2) X10*3/uL Abs Immat Gran (auto) 0.01 (0.00-0.03) X10*3/uL Absolute Neuts (auto) 2.0 (2.0-8.3) x10*3/uL Absolute Nucleated RBC 0.000 (0.0-0.012) X10*3/uL Nucleated RBC % (auto) 0.0 (0.0-0.2) /100WBC Sodium 131 L (135-145) mmol/L Potassium 4.6 (3.3-5.1) mmol/L Chloride 98 (96-108) mmol/L Carbon Dioxide 17 L (22-29) mmol/L Anion Gap 21 H (12-20) BUN 6 L D (9-16) mg/dL Creatinine 0.91 (0.5-1.4) mg/dL Estim Creat Clear Calc 104.3 Estimated GFR > 60 Random Glucose 106 (60-115) mg/dL Calcium 8.3 L D (8.4-10.2) mg/dL Troponin I High Sens < 3.5 (<3.5-35.0) ng/L 03/17/22 Range/Units 23:53 WBC (4.8-10.8) X10*3/uL RBC (4.60-5.80) X10*6/uL Hgb (14.0-18.0) g/dl Hct (42.0-52.0) % MCV (80.0-98.0) fL MCH (27.0-33.0) pg MCHC (31.0-36.0) g/dl RDW (11.0-16.0) % Plt Count (160-400) X10*3/uL MPV (9.4-12.4) fL Immature Gran % (Auto) (0.0-0.4) % Neut % (Auto) (45-73) % Lymph % (Auto) (20-40) % [place] % (Auto) (2-11) % Eos % (Auto) (0-4) % Baso % (Auto) (0-2) % Lymph # (Auto) (1.2-4.9) X10*3/uL [place] # (Auto) (0.1-1.2) X10*3/uL Eos # (Auto) (0.0-0.4) X10*3/uL Baso # (Auto) (0.0-0.2) X10*3/uL Abs Immat Gran (auto) (0.00-0.03) X10*3/uL Absolute Neuts (auto) (2.0-8.3) x10*3/uL Absolute Nucleated RBC (0.0-0.012) X10*3/uL Nucleated RBC % (auto) (0.0-0.2) /100WBC Sodium (135-145) mmol/L Potassium (3.3-5.1) mmol/L Chloride (96-108) mmol/L Carbon Dioxide (22-29) mmol/L Anion Gap (12-20) BUN (9-16) mg/dL Creatinine (0.5-1.4) mg/dL Estim Creat Clear Calc Estimated GFR Random Glucose (60-115) mg/dL Calcium (8.4-10.2) mg/dL Troponin I High Sens < 3.5 (<3.5-35.0) ng/L Imaging Data Chest x-ray: Radiologist's impression: IMPRESSION: No acute pulmonary finding. ECG Data ECG #1: ECG interpretation date: 03/17/22 ECG interpretation time: 23:11 Interpretation: Sinus rhythm with a rate of 86. Berto pattern in lead V1 and V2. No ST elevation or depression. No significant change from 08/31/2017. Scores Heart Score History: -0- slightly suspicious ECG: -0- normal Age: -1- >45 - <65 Risk factory: -1- 1 or 2 risk factors Troponin: -0- < or = normal limit Score: 2 Risk: 1.7% Discharge Plan Discharge Clinical Impression: Chest pain Patient Disposition: Home, Self-Care Instructions: Chest Pain (ED) Additional Instructions: Follow-up with her primary care physician as scheduled. Continue current medications. Return for any new or worsened symptoms Prescriptions: No Action (DME) karol.stocking,thigh,reg,med Misc See Rx Instructions .Route Qty: 2 4RF Rx Instructions: As directed 20-30 mm HG fluticasone propionate 50 mcg/actuation spray,suspension 2 spray intranasal DAILY Qty: 48 2RF bupropion HCl 150 mg tablet sustained-release 12 hr 150 mg PO BID Qty: 180 1RF docusate sodium [Colace] 100 mg capsule 100 mg PO DAILY Qty: 90 3RF zolpidem 10 mg tablet 10 mg PO BEDTIME PRN (Reason: insomnia) 30 Days Qty: 30 1RF omeprazole 20 mg capsule,delayed release(DR/EC) 20 mg PO DAILY Qty: 90 2RF diltiazem HCl 180 mg capsule,extended release 24hr 180 mg PO DAILY Qty: 90 1RF lisinopril 30 mg tablet 30 mg PO DAILY 30 Days Qty: 90 3RF diphenhydramine HCl [Benadryl] 25 mg capsule 25 mg PO Q8H 5 Days Qty: 15 0RF epinephrine [EpiPen] 0.3 mg/0.3 mL auto-injector 0.3 mg IM ONCE PRN (Reason: extreme reaction) Qty: 1 0RF Rx Instructions: for 2 doses (DME) blood pressure monitor Kit See Rx Instructions .ROUTE .MEDSUPPLY Qty: 1 0RF Rx Instructions: As directed tramadol 50 mg tablet 50 mg PO TID PRN (Reason: pain) Qty: 90 1RF sertraline 25 mg tablet 25 mg PO DAILY Qty: 30 0RF Rx Instructions: Neurology started tizanidine 4 mg tablet 4 mg PO BEDTIME PRN (Reason: muscle spasticity) Qty: 20 0RF Interventions: ED Discharge Assessment Last Done: 03/18/22 01:06 Discharge Date/Time: 03/18/22 01:07
[2022-03-18] MEDS: LORazepam 1 MG TABLET PO (00:19)
[2022-03-18 00:22] LABS: Troponin-I High Sensitivity < 3.5 ng/L (<3.5-35.0)
[2022-03-18 00:36] VITALS: BP 119/79; PULSE 89; RESP 16; TEMP 36.3; O2SAT 99
--- NOTE | 2022-03-18 01:07 | PC.NURSE ---
Discharge instructions given to pt and explained. Pt ambulates safely and independently. All questions were answered.
== END 2022-03-18 01:07 | disposition home or self-care (01) ==
PROVIDERS: Emergency Provider Emergency Medicine; PCP Internal Medicine
DX: R07.89 Other chest pain (principal); R06.02 Shortness of breath; I10 Essential (primary) hypertension; F41.9 Anxiety disorder, unspecified; Z79.899 Other long term (current) drug therapy; Z87.891 Personal history of nicotine dependence
CPT/HCPCS: 36415; 71045; 80048; 84484; 85025; 93005; 99284; 99285

== ENCOUNTER 2022-03-20 01:40 | Emergency (ER) | payer OTHER, SELFPAY ==
[2022-03-20 01:51] VITALS: BP 143/90; PULSE 80; RESP 16; TEMP 36.5; O2SAT 97; BMI 32.1
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
[2022-03-20 02:26] LABS: COVID-19 Test Negative (Negative); IDNOW Serial# 16C4AD1C
[2022-03-20 02:27] LABS: Amphetamine Screen Urine Not Detected (Not Detect); Barbiturates, Urine Not Detected (Not Detect); Benzodiazepines Screen Urine Not Detected (Not Detect); Cannabinoid Screen Urine Not Detected (Not Detect); Cocaine Screen Urine Not Detected (Not Detect); Fentanyl, urine Not Detected (Not Detect); Opiate Screen Urine Not Detected (Not Detect); Phencyclidine Screen Urine Not Detected (Not Detect)
== END 2022-03-20 03:06 | disposition home or self-care (01) ==
PROVIDERS: Emergency Provider Emergency Medicine; PCP Internal Medicine
DX: F41.1 Generalized anxiety disorder (principal); I10 Essential (primary) hypertension; Z20.822 Contact with and (suspected) exposure to COVID-19; Z79.899 Other long term (current) drug therapy; Z87.891 Personal history of nicotine dependence
CPT/HCPCS: 80307; 87635; 99282; 99283

== ENCOUNTER 2022-10-15 06:33 | Emergency (ER) | payer OTHER, SELFPAY ==
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
--- NOTE | ~2022-10-15 | XR_ITS ---
EXAMINATION: XR SHOULDER, LEFT CLINICAL INFORMATION: Shoulder pain COMPARISON: None available. TECHNIQUE: Three views of the left shoulder. FINDINGS: Bones have normal alignment. No acute fracture or subluxation. Minimal osteophyte formation at undersurface of distal clavicle and inferior glenohumeral joint. The subacromial space is normal. No evidence of calcium deposition within rotator cuff tendons. XR/XR shoulder LT 1V IMPRESSION: No acute abnormality. No fractures of fixation at the left shoulder. Minimal osteoarthrosis of the glenohumeral and acromioclavicular joints.
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
[2022-10-15 06:55] VITALS: BP 169/109; PULSE 110; RESP 18; TEMP 36.8; O2SAT 96; BMI 32.8
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
[2022-10-15] MEDS: Ibuprofen 800 MG TABLET PO (08:01)
== END 2022-10-15 10:16 | disposition home or self-care (01) ==
PROVIDERS: Emergency Provider Emergency Medicine
DX: M54.2 Cervicalgia (principal); R51.9 Headache, unspecified; M25.512 Pain in left shoulder; Z79.899 Other long term (current) drug therapy
CPT/HCPCS: 70450; 72125; 73020; 99284

== ENCOUNTER 2023-04-22 00:16 | Emergency (ER) | payer OTHER, SELFPAY ==
[2023-04-22 00:20] VITALS: BP 126/87; PULSE 96; RESP 19; TEMP 36.4; O2SAT 96; BMI 43.1
--- NOTE | 2023-04-22 01:08 | PC.NURSE ---
Pt ambulated to [facility] 4 with steady gait, reporting 10/10 constant lower back pain x4 days. Denies any accident or injury. Pt reports the pain is so bad I cant sleep . plan of care ongoing.
[2023-04-22 03:32] VITALS: BP 125/88; PULSE 87; RESP 18; TEMP 36.4; O2SAT 97
[2023-04-22] MEDS: Lidocaine 4 % Patch ADH..PATCH 1 PATCH TRANSDERMA (03:45)
[2023-04-22] MEDS: Ibuprofen 400 MG TABLET PO (03:45)
[2023-04-22] MEDS: Acetaminophen 325 MG TABLET 975 MG PO (03:45)
--- NOTE | 2023-04-22 04:26 | PC.NURSE ---
This RN in room to introduce self, pt reporting 10/10 pain in lower back radiating down left leg. Warm pack provided. Discussed , verbal orders given and patient medicated. Patient now in bed resting, eyes closed.
--- NOTE | 2023-04-22 05:53 | PC.NURSE ---
Patient growing increasingly frustrated with wait time. This RN discussed with charge and notified but will not be able to see patient. Due to downtime and other critical patients with higher acuity, wait times have increased. Patient notified and informed that another provider would be in at 0630.
--- NOTE | 2023-04-22 06:16 | ED_ITS ---
HPI - Back Pain/Injury General Chief Complaint: Back Pain/Injury Stated Complaint: lower back pain Time Seen by Provider: 04/22/23 06:16 Source: patient Mode of arrival: ambulatory History of Present Illness HPI Narrative: 52-year-old male who presents the emergency room for lower back pain that radiates in the left leg for 3-4 days. This is not been associated with any fever, chills, history of drug use and he denies any bowel or bladder dysfunction. Patient denies any difficulty with urination and denies any recent traumatic injury. Related Data Home Medications Medication Instructions Recorded Confirmed bupropion HCl 150 mg 24 hr tablet, 1 tab PO QAM 03/20/22 12/01/22 extended release Previous Rx's Medication Instructions Recorded blood pressure monitor #1 ea 01/28/21 karol.stocking,thigh,reg,med #2 ea 03/12/21 quetiapine 50 mg tablet (Seroquel) 50 mg PO BEDTIME 30 days #30 tabs 03/20/22 sertraline 50 mg tablet 50 mg PO DAILY #30 tabs 03/20/22 alprazolam 0.25 mg tablet 0.25 mg PO DAILY #4 tabs 07/30/22 lisinopril 30 mg tablet 30 mg PO DAILY #90 tabs 08/19/22 ibuprofen 800 mg tablet 800 mg PO TID #20 tabs 12/01/22 tizanidine 2 mg tablet 2 mg PO Q8H PRN muscle spasticity 12/01/22 #20 tabs omeprazole 20 mg capsule,delayed 20 mg PO DAILY #90 caps 01/15/23 release diltiazem HCl 240 mg 240 mg PO DAILY #90 caps 02/12/23 capsule,extended release 24 hr Allergies Allergy/AdvReac Type Severity Reaction Status Date / Time No Known Allergies Allergy Verified 04/22/23 00:19 [No Known Allergies*] Review of Systems Review of Systems: Pertinent positives and negatives as stated in HPI PMFSH Past Medical History Source: nursing notes reviewed Medical History Colon cancer screening Lumbar degenerative disc disease Anxiety and depression GERD (gastroesophageal reflux disease) Obstructive sleep apnea Erectile dysfunction Hypertension Unilateral post-traumatic osteoarthritis, right knee Insomnia Surgical History S/P right knee arthroscopy No pertinent past surgical history Family History Family History Father Stroke Coronary artery disease Mother Alive and well Family/Other Coronary artery disease Social History Social History Housing: Apartment Alcohol intake: current Alcohol intake frequency: holidays/special occasions only Patient Tobacco Use Status: Former Tobacco user Smoked in Last 30 Days: No e-Cigarette/Vaping Use: Never Used Second Hand Smoke Exposure: No Use of substances other than those prescribed or required for medical reasons: No Advance Directives: No Advance Directives Information Provided: No service: No Current occupational status: unemployed Cognitive needs: No Hearing needs: No Vision needs: No Physical Exam Vital Signs: Vital Signs: Last Vital Signs Temp 97.6 F 04/22/23 03:32 Pulse 87 04/22/23 03:32 Resp 18 04/22/23 03:32 BP 125/88 04/22/23 03:32 Pulse Ox 97 04/22/23 03:32 O2 Del Method Room Air 04/22/23 03:32 BMI result Body Mass Index 43.1 VITAL SIGNS: Reviewed. GENERAL: Well developed, well nourished, in no acute distress. HEAD: Normocephalic/atraumatic EYES: PERRLA, EOMI EARS: Ext canals without abnormality NOSE: Nares patent bilateral OROPHARYNX: no oral lesions noted, posterior pharynx clear NECK: Supple, no adenopathy LUNGS: Normal breath sounds. No adventitious sounds or accessory muscle use. SpO2<97> CARDIOVASCULAR: Regular rate and rhythm without noted murmurs ABDOMEN: Soft, non-tender, non-distended with bowel sounds. BACK: Midline vertebral tenderness negative for step-offs or tenderness. MUSCULOSKELETAL: No tenderness, deformities, or effusions noted on gross inspection. EXTREMITIES: No cyanosis, clubbing or edema. SKIN: Inspection of the skin reveals no rashes NEUROLOGIC: Alert and oriented x 4. Strength and sensation to light touch were grossly intact x 4. Medications Administered Discontinued Medications Generic Name Dose Route Start Last Admin Trade Name Freq PRN Reason Stop Dose Admin Acetaminophen 975 mg 04/22/23 03:34 04/22/23 03:45 Acetaminophen 325 Mg Tablet PO 04/22/23 03:35 975 mg ONCE ONE Administration Ibuprofen 400 mg 04/22/23 03:34 04/22/23 03:45 Ibuprofen 400 Mg Tablet PO 04/22/23 03:35 400 mg ONCE ONE Administration Lidocaine 1 patch 04/22/23 03:35 04/22/23 03:45 Lidocaine 4 % Patch Adh..Patch TRANSDERMA 04/22/23 03:36 1 patch ONCE ONE Administration Protocol Medical Decision Making Medical Decision Making MDM Narrative: 52-year-old male with history and clinical presentation most consistent with acute on chronic back pain with sciatica. Patient received combination analgesics with lidocaine patch and on re-evaluation is noted to be sleeping c omfortably and states that his pain has significantly improved. I have no concerns for a cauda equina, renal colic or UTI. He is discharged. Differential Diagnosis Differential Diagnoses: The differential diagnosis associated with the presentation includes Please see the discussion above Admission/Observation Consideration of admission/observation: Escalation of care including admission/observation considered Please see the discussion above Discharge Plan Discharge Clinical Impression: Acute exacerbation of chronic low back pain Patient Disposition: Home, Self-Care Instructions: Lower Back Exercises (ED) Additional Instructions: 1. Tylenol 1000 mg, every 6 hours, as needed for pain control. Do not exceed 4000 mg within 24 hours. 2. Recommend lidocaine patch apply to area of maximal tenderness as directed on the outside packaging. 3. Ibuprofen 400 mg, orally with milk or food, every 6 hours as needed for pain control. 4. Follow-up with your primary care doctor in the next 2-3 days. Return to the ER for any worsening symptoms. Prescriptions: No Action (DME) karol.stocking,thigh,reg,med Misc See Rx Instructions .Route Qty: 2 4RF Rx Instructions: As directed 20-30 mm HG alprazolam 0.25 mg tablet 0.25 mg PO DAILY Qty: 4 0RF lisinopril 30 mg tablet 30 mg PO DAILY Qty: 90 3RF omeprazole 20 mg capsule,delayed release(DR/EC) 20 mg PO DAILY Qty: 90 3RF diltiazem HCl 240 mg capsule,extended release 24hr 240 mg PO DAILY Qty: 90 1RF bupropion HCl 150 mg tablet extended release 24 hr 1 tab PO QAM (DME) blood pressure monitor Kit See Rx Instructions .ROUTE .MEDSUPPLY Qty: 1 0RF Rx Instructions: As directed quetiapine [Seroquel] 50 mg tablet 50 mg PO BEDTIME 30 Days Qty: 30 2RF sertraline 50 mg tablet 50 mg PO DAILY Qty: 30 3RF tizanidine 2 mg tablet 2 mg PO Q8H PRN (Reason: muscle spasticity) Qty: 20 0RF ibuprofen 800 mg tablet 800 mg PO TID Qty: 20 0RF Interventions: ED Discharge Assessment Last Done: 04/22/23 06:27 Discharge Date/Time: 04/22/23 06:20
== END 2023-04-22 06:20 | disposition home or self-care (01) ==
PROVIDERS: Emergency Provider Student in an Organized Health Care Education/Training Program
DX: G89.29 Other chronic pain (principal); M54.50 Low back pain, unspecified; I10 Essential (primary) hypertension; Z79.899 Other long term (current) drug therapy; Z87.891 Personal history of nicotine dependence
CPT/HCPCS: 99283; 99284

== ENCOUNTER 2023-05-06 14:22 | Outpatient (AMB) | payer OTHER, SELFPAY ==
[2023-05-06 14:34] VITALS: BP 134/94; PULSE 108; O2SAT 98; BMI 37.3
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
== END 2023-05-06 15:09 | disposition home or self-care (01) ==
PROVIDERS: Visit Provider Internal Medicine
DX: I10 Essential (primary) hypertension (principal); K21.9 Gastro-esophageal reflux disease without esophagitis; F41.1 Generalized anxiety disorder; R73.01 Impaired fasting glucose; E66.9 Obesity, unspecified; Z23 Encounter for immunization; M54.9 Dorsalgia, unspecified; M54.50 Low back pain, unspecified
CPT/HCPCS: 90471; 90686; 99214

== ENCOUNTER 2023-08-25 22:16 | Emergency (ER) | payer OTHER, SELFPAY ==
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
[2023-08-25 22:51] VITALS: BP 131/97; PULSE 104; RESP 18; TEMP 36.4; O2SAT 96; BMI 35.2
== END 2023-08-26 03:30 | disposition left against medical advice (07) ==
PROVIDERS: Emergency Provider Emergency Medicine; PCP Internal Medicine
DX: M54.50 Low back pain, unspecified (principal)
CPT/HCPCS: 72100; 99281; 99283

== ENCOUNTER 2023-09-22 17:31 | Emergency (ER) | payer OTHER, SELFPAY ==
[2023-09-22 17:39] VITALS: BP 152/100; PULSE 91; RESP 16; TEMP 36.6; O2SAT 96; BMI 36.8
== END 2023-09-22 22:52 | disposition left against medical advice (07) ==
LOC: HO.ED 22:50
PROVIDERS: Emergency Provider Emergency Medicine; PCP Internal Medicine
DX: F43.0 Acute stress reaction (principal)
CPT/HCPCS: 99281

== ENCOUNTER 2023-09-25 00:36 | Emergency (ER) | payer OTHER, SELFPAY ==
[2023-09-25 00:40] VITALS: BP 141/90; PULSE 95; RESP 18; TEMP 36.6; O2SAT 99; BMI 36.8
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
[2023-09-25] MEDS: LORazepam 1 MG TABLET 2 MG PO (02:01)
--- NOTE | 2023-09-25 02:06 | PC.NURSE ---
Pt ca&ox4, no signs of distress. Pt ambulates with a steady gait. Pt changed over. Pt medicated per sep. Pt resting comfortably in bed. Plan of care ongoing.
[2023-09-25 02:31] LABS: Amphetamine Screen Urine Not Detected (Not Detect); Barbiturates, Urine Not Detected (Not Detect); Cannabinoid Screen Urine POSITIVE (Not Detect); Cocaine Screen Urine Not Detected (Not Detect); Fentanyl, urine Not Detected (Not Detect); Opiate Screen Urine Not Detected (Not Detect); Phencyclidine Screen Urine Not Detected (Not Detect)
[2023-09-25 02:49] LABS: Benzodiazepines Screen Urine Not Detected (Not Detect)
[2023-09-25 02:59] LABS: Influenza A PCR NEGATIVE (Negative); Influenza B PCR NEGATIVE (Negative); Resp Syncy Virus RNA Qual PCR NEGATIVE (Negative); SARS COV2 PCR INHOUSE NEGATIVE (Negative)
--- NOTE | 2023-09-25 08:13 | PC.NURSE ---
patient appears to be asleep in BH2, respirations equal and unlabored, skin dry and intact
--- NOTE | 2023-09-25 09:17 | PHA.MEDREC ---
Pharmacy Consult ? Medication Reconciliation Pharmacy has reviewed the medication reconciliation done by nursing staff.
[2023-09-25] MEDS: lisinopriL 10 MG TABLET 30 MG PO (09:40)
[2023-09-25] MEDS: NaPROXEN 500 MG TABLET PO (09:40)
[2023-09-25] MEDS: ALPRAZolam 0.25 MG TABLET PO (09:41)
--- NOTE | 2023-09-25 09:49 | PC.NURSE ---
patient is awake and alert, ambulates with steady gait around unit and to bathroom. patient requesting to go home and states he feels better. patient medicated per MAR with AM medications, awaiting care team consult
[2023-09-25] MEDS: dilTIAZem HCL CD 240 MG CAP.ER.DEG PO (10:30)
[2023-09-25 12:25] VITALS: BP 149/98; PULSE 95; RESP 18; TEMP 36.9
== END 2023-09-25 12:32 | disposition home or self-care (01) ==
PROVIDERS: Emergency Provider Emergency Medicine
DX: F41.1 Generalized anxiety disorder (principal); I10 Essential (primary) hypertension; K21.9 Gastro-esophageal reflux disease without esophagitis; Z79.899 Other long term (current) drug therapy; Z11.52 Encounter for screening for COVID-19; Z20.828 Contact with and (suspected) exposure to other viral communicable diseases
CPT/HCPCS: 0241U; 80307; 99284; S9485

== ENCOUNTER 2023-10-29 08:22 | Outpatient (AMB) | payer OTHER, SELFPAY ==
[2023-10-29 08:59] VITALS: BP 130/90; PULSE 99; TEMP 36.6; O2SAT 99; BMI 36.8
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
== END 2023-10-29 12:20 | disposition home or self-care (01) ==
PROVIDERS: Visit Provider Physician Assistant Medical
DX: J20.9 Acute bronchitis, unspecified (principal)
CPT/HCPCS: 99214

== ENCOUNTER 2023-10-29 13:17 | Outpatient (REF) | payer OTHER, SELFPAY ==
[2023-10-29 15:14] LABS: Influenza A PCR NEGATIVE (Negative); Influenza B PCR NEGATIVE (Negative); Resp Syncy Virus RNA Qual PCR NEGATIVE (Negative); SARS COV2 PCR INHOUSE NEGATIVE (Negative)
== END 2023-10-29 13:18 | disposition home or self-care (01) ==
LOC: HO.HMGCLNP 13:17
PROVIDERS: Visit Provider Physician Assistant Medical
DX: R05.9 Cough, unspecified (principal); J06.9 Acute upper respiratory infection, unspecified
CPT/HCPCS: 0241U

== ENCOUNTER 2024-02-02 08:01 | Outpatient (AMB) | payer OTHER, SELFPAY ==
[2024-02-02 08:14] VITALS: BP 144/82; PULSE 80; TEMP 36.6; O2SAT 98; BMI 38.1
--- NOTE | 2024-02-02 08:14 | MHC.OFFWIV ---
Intake Vital Signs 02/02/24 08:14 Height 5 ft 7 in Weight 243 lb 6 oz BMI 38.1 BP 144/82 H Blood Pressure Location Rt brachial Position Sitting Pulse 80 Pulse Source Pulse Oximeter Temp 97.8 F Temp Source Temporal Artery Scan Pulse Oximetry (%) 98 Intake Visit Reasons: EP LT side lower AB pain Intake Note: pt is here for left side abd pain after putting blinds on windows Patient Tobacco Use Status: Former Tobacco user Allergies No Known Allergies [No Known Allergies*] Allergy (Verified 02/02/24 08:19) Do you need a note to return to daycare/school/sports/work: No HPI HPI Comments History of Present Illness Details 53 y/o male patient who presents to walk in clinic with c/o left sided lower abdominal wall pain since Wednesday. He was hanging mini- drapes at home and felt the pain afterwards. [facility] Medical History Colon cancer screening Lumbar degenerative disc disease Anxiety and depression GERD (gastroesophageal reflux disease) Obstructive sleep apnea Erectile dysfunction Hypertension Unilateral post-traumatic osteoarthritis, right knee Insomnia Surgical History S/P right knee arthroscopy No pertinent past surgical history Family History Father Stroke Coronary artery disease Mother Alive and well Family/Other Coronary artery disease Social History Housing: Apartment Alcohol intake: current Alcohol intake frequency: holidays/special occasions only Patient Tobacco Use Status: Former Tobacco user e-Cigarette/Vaping Use: Never Used Second Hand Smoke Exposure: No service: No Current occupational status: unemployed Cognitive needs: No Hearing needs: No Vision needs: No Review of Systems Const All systems reviewed & are unremarkable except as noted in HPI and below Physical Exam Vital Signs: Last Vital Signs Temp 97.8 F 02/02/24 08:14 Pulse 80 02/02/24 08:14 BP 144/82 H 02/02/24 08:14 Pulse Ox 98 02/02/24 08:14 BMI result Body Mass Index 38.1 Const General: comfortable and no acute distress Nutritional Appearance: obese Orientation/consciousness: patient oriented x3 GI Inspection: Yes normal to inspection and Yes Abdominal panniculus present Palpation (GI): Soft to palpation, not firm, Tenderness to palpation present (GI) in the epigastrum and in the LLQ, no guarding, not rigid, No hepatosplenomegaly present, no hernias and no masses Auscultation: normal bowel sounds Rectal Exam - Male: Yes deferred Neuro General: patient oriented x3, gait normal and moves all extremities Psych Speech and movement: Normal speech and movement present Assessment & Plan Assessment & Plan (1) Abdominal wall pain in left flank: Code(s): R10.9 - Unspecified abdominal pain Plan: OTC pain relief medications Possibly Muscle Strain/Pull IceHot Medications: New cyclobenzaprine 5 mg PO BEDTIME 7 tabs 0RF R10.9 - Unspecified abdominal pain Coding Level of Care Code Est Pt Level 3 (33582) Diagnoses Abdominal wall pain in left flank R10.9 Time Spent (min) 15
== END 2024-02-02 08:55 | disposition home or self-care (01) ==
PROVIDERS: Visit Provider Nurse Practitioner Family
DX: R10.9 Unspecified abdominal pain (principal)
CPT/HCPCS: 99213

== ENCOUNTER 2024-02-05 17:22 | Emergency (ER) | payer OTHER, SELFPAY ==
[2024-02-05 17:50] VITALS: BP 128/77; PULSE 97; RESP 18; TEMP 36.7; O2SAT 95; BMI 38.8
--- NOTE | 2024-02-05 17:50 | ED_ITS ---
HPI - Head Injury General Chief complaint: Skin/Abscess/Foreign Body Stated complaint: rt side rt head cut Time Seen by Provider: 02/05/24 17:54 Source: patient, RN notes reviewed and old records reviewed Mode of arrival: ambulatory History of Present Illness ED Provider: Radha Zimmer PA-C HPI Narrative: 53-year-old male with a past medical history GERD, anxiety, HTN, presenting to the ED complaining of laceration to scalp s/p hitting head on washing machine while moving it earlier today. Tetanus unknown. Denies reported injury, fall. States someone noted blood/injury to head. Patient denies headache, naus ea/vomiting, vision change/loss, numbness/tingling, LOC. Denies taking anticoagulation MD Complaint: head injury Related Data Previous Rx's ?Medication ?Instructions ?Recorded blood pressure monitor #1 ea 01/28/21 karol.stocking,thigh,reg,med #2 ea 03/12/21 alprazolam 0.25 mg tablet 0.25 mg PO DAILY #4 tabs 07/30/22 ibuprofen 800 mg tablet 800 mg PO TID #20 tabs 12/01/22 omeprazole 20 mg capsule,delayed 20 mg PO DAILY #90 caps 01/15/23 release lisinopril 30 mg tablet 30 mg PO DAILY #90 tabs 08/04/23 diltiazem HCl 240 mg 240 mg PO DAILY #90 caps 08/11/23 capsule,extended release 24 hr meloxicam 15 mg tablet 15 mg PO DAILY #14 tabs 08/25/23 albuterol sulfate 90 mcg/actuation 1 inh inhalation QID PRN shortness 10/29/23 aerosol inhaler of breath or wheezing #8.5 grams cyclobenzaprine 5 mg tablet 5 mg PO BEDTIME #7 tabs 02/02/24 Allergies Allergy/AdvReac Type Severity Reaction Status Date / Time No Known Allergies Allergy Verified 02/05/24 17:52 [No Known Allergies*] Review of Systems 2 Review of Systems: Constitutional: No Fever, No Chills ENT/Mouth: No Ear Pain, No Nasal Congestion, No sore throat, No Rhinorrhea, No Swallowing Difficulty Cardiovascular: No Chest Pain, No SOB Respiratory: No Cough, No Sputum Gastrointestinal: No Nausea, No Vomiting, No Abdominal pain Musculoskeletal: No joint pain, No Myalgias, No Joint Swelling Skin: + Skin Lesions, No rash Neuro: No Weakness, No Numbness, No Paresthesias, no headache, no LOC Yes all other systems are reviewed and are negative Constitutional: Constitutional: Reports as per HPI Neurologic: Denies Abnormal speech present [facility] Past Medical History Attestation statement: The following information was validated with the patient. Source: old records reviewed Medical History Colon cancer screening Lumbar degenerative disc disease Anxiety and depression GERD (gastroesophageal reflux disease) Obstructive sleep apnea Erectile dysfunction Hypertension Unilateral post-traumatic osteoarthritis, right knee Insomnia Surgical History S/P right knee arthroscopy No pertinent past surgical history Family History Family History Father Stroke Coronary artery disease Mother Alive and well Family/Other Coronary artery disease Social History Social History Housing: Apartment Alcohol intake: current Alcohol intake frequency: holidays/special occasions only Patient Tobacco Use Status: Former Tobacco user e-Cigarette/Vaping Use: Never Used Second Hand Smoke Exposure: No Advance Directives: No Advance Directives Information Provided: No service: No Current occupational status: unemployed Cognitive needs: No Hearing needs: No Vision needs: No Physical Exam Vital Signs: Vital Signs: Last Vital Signs Temp 98.0 F 02/05/24 18:13 Pulse 97 02/05/24 18:13 Resp 18 02/05/24 18:13 BP 128/77 02/05/24 18:13 Pulse Ox 95 02/05/24 18:13 O2 Del Method Room Air 02/05/24 18:13 BMI result Body Mass Index 38.8 Const: General: cooperative, healthy appearing and no acute distress Orientation/consciousness: patient oriented x3 Limitations: no limitations HEENT: Other: 1.5 cm [facility]. Bleeding controlled. Underlying structures appear intact. No hematoma. No palpable step-off Head: Yes normal to inspection Ears: hearing grossly normal bilaterally General nose exam: Normal external nose present Face and sinus: Yes normal facial exam Mouth: Normal oral and palatal mucosa present Throat: Yes posterior oropharynx normal, Yes tonsils normal and Yes uvula midline Eyes: General: appearance normal, both eyes and all related structures Pupils: Equal, round and reactive pupils present EOM: EOMs intact bilaterally Neck: Neck: Yes normal visual inspection and Yes no meningeal signs Resp: Effort & Inspection: normal respiratory effort and no respiratory distress Cardio: Rate: regular rate : General: Yes no CVA tenderness Back/Spine/Pelvis: Back: no CVA tenderness Skin: Rashes: no rashes Wounds: no wounds Neuro: General: patient oriented x3, gait normal, tone normal, moves all extremities, no meningeal signs, no focal motor deficits and CN's II-XI intact bilaterally Cranial nerves: Yes CN's II-XII intact bilaterally, Yes Equal, round and reactive pupils present and Yes Bilaterally intact EOM present Cognition (Neuro): normal cognition Speech: No Abnormal speech present Gait exam (Neuro): Normal gait present Motor exam (neuro): 5/5 motor strength present throughout and Pronator motor function not present Extrem: General: Yes normal to inspection Course Course Course Narrative: Results discussed with patient including worrisome signs and symptoms and strict return precautions, and when to return to the emergency department. They verbalized understanding and feel safe for discharge at this time. Medical Decision Making Medical Decision Making MDM Narrative: 53-year-old male with a past medical history GERD, anxiety, HTN, presenting to the ED complaining of laceration to scalp s/p hitting head on washing machine while moving it earlier today. On exam vital signs stable, NAD, nontoxic appearing, physical exam as noted above with superficial laceration to right scalp. No step-off. No focal neuro deficits, ambulating with steady gait. [place] head CT rule negative. Low suspicion for ICH or fracture Plan: Staple repair, Tdap Please refer to course for remaining clinical decision making, interpretation of labs/imaging results, and discussions with consultants and/or family members. Differential Diagnosis Differential Diagnoses: The differential diagnosis associated with the presentation includes As above External Record Review External record reviewed: Inpatient record, Office record, Outpatient record, Prior outpatient labs, Prior outpatient radiology, Primary care record and Outside ED record Tests considered The following testing was considered but not selected: As above Prescription Management I considered prescription management with: Pain Medication and Antibiotic Procedures Laceration Laceration 1: Site: scalp Side (If applicable): right Size (cm): 1.5 Description: linear Depth: simple, single layer Pre-repair: wound explored and irrigated extensively Skin layer closed with: other (Stables) Number of sutures: 2 Discharge Plan Discharge Clinical Impression: Laceration of scalp Patient Disposition: Home, Self-Care Instructions: Laceration (DC) Additional Instructions: Your wounds were repaired today in the emergency department. Keep dry and clean. You need to return to any emergency department, urgent care, or your PCPs office in 7-10 days for staple removal You may apply bacitracin/Neosporin daily Once petty are removed apply anti scar cream like Mederma If area begins look infected, is red, there is drainage, streaking, or you have fever, increasing/persistent headache, nausea/vomiting or weakness please return to the emergency department Prescriptions: No Action (DME) karol.stocking,thigh,reg,med Misc See Rx Instructions .Route Qty: 2 4RF Rx Instructions: As directed 20-30 mm HG alprazolam 0.25 mg tablet 0.25 mg PO DAILY Qty: 4 0RF omeprazole 20 mg capsule,delayed release(DR/EC) 20 mg PO DAILY Qty: 90 3RF lisinopril 30 mg tablet 30 mg PO DAILY Qty: 90 3RF diltiazem HCl 240 mg capsule,extended release 24hr 240 mg PO DAILY Qty: 90 1RF (DME) blood pressure monitor Kit See Rx Instructions .ROUTE .MEDSUPPLY Qty: 1 0RF Rx Instructions: As directed meloxicam 15 mg tablet 15 mg PO DAILY Qty: 14 0RF ibuprofen 800 mg tablet 800 mg PO TID Qty: 20 0RF albuterol sulfate 90 mcg/actuation HFA aerosol inhaler 1 inh inhalation QID PRN (Reason: shortness of breath or wheezing) Qty: 8.5 0RF cyclobenzaprine 5 mg tablet 5 mg PO BEDTIME Qty: 7 0RF Referrals: Po,Tenzin Colón MD [Primary Care Provider] - 1 week (For staple removal) Interventions: ED Discharge Assessment Last Done: 02/05/24 18:13 Discharge Date/Time: 02/05/24 18:14 Print Language: Marshallese
[2024-02-05 18:13] VITALS: BP 128/77; PULSE 97; RESP 18; TEMP 36.7; O2SAT 95
== END 2024-02-05 18:14 | disposition home or self-care (01) ==
PROVIDERS: Emergency Provider Emergency Medicine; PCP Internal Medicine
DX: S01.01XA Laceration without foreign body of scalp, initial encounter (principal); W22.8XXA Striking against or struck by other objects, initial encounter; Y93.E9 Activity, other interior property and clothing maintenance; Y92.009 Unspecified place in unspecified non-institutional (private) residence as the place of occurrence of the external cause; Y99.9 Unspecified external cause status
CPT/HCPCS: 12001; 90471; 99282; 99284

== ENCOUNTER 2024-02-15 10:02 | Outpatient (AMB) | payer OTHER, SELFPAY ==
[2024-02-15 10:06] VITALS: BP 126/84; PULSE 91; TEMP 36.5; O2SAT 98; BMI 38.2
--- NOTE | 2024-02-15 10:06 | MHC.OFFWIV ---
Intake Vital Signs 02/15/24 10:06 Height 5 ft 7 in Weight 244 lb BMI 38.2 BP 126/84 Blood Pressure Location Lt brachial Position Sitting Pulse 91 Pulse Source Pulse Oximeter Temp 97.7 F Temp Source Temporal Artery Scan Pulse Oximetry (%) 98 Oxygen Delivery Method Room Air Intake Visit Reasons: EP Stiches removal Intake Note: Pt here for staple removal from scalp Patient Tobacco Use Status: Former Tobacco user Allergies No Known Allergies [No Known Allergies*] Allergy (Verified 02/15/24 10:11) Do you need a note to return to daycare/school/sports/work: No HPI EP Stiches removal HPI Details 53-year-old male presents to the office for a sick visit. Petty were inserted on a scalp wound at the emergency room 10 days ago. He would like them removed. [facility] Medical History Colon cancer screening Lumbar degenerative disc disease Anxiety and depression GERD (gastroesophageal reflux disease) Obstructive sleep apnea Erectile dysfunction Hypertension Unilateral post-traumatic osteoarthritis, right knee Insomnia Surgical History S/P right knee arthroscopy No pertinent past surgical history Family History Father Stroke Coronary artery disease Mother Alive and well Family/Other Coronary artery disease Social History Housing: Apartment Alcohol intake: current Alcohol intake frequency: holidays/special occasions only Patient Tobacco Use Status: Former Tobacco user e-Cigarette/Vaping Use: Never Used Second Hand Smoke Exposure: No service: No Current occupational status: unemployed Cognitive needs: No Hearing needs: No Vision needs: No Physical Exam Vital Signs: Last Vital Signs Temp 97.7 F 02/15/24 10:06 Pulse 91 02/15/24 10:06 BP 126/84 02/15/24 10:06 Pulse Ox 98 02/15/24 10:06 Oxygen Delivery Method Room Air 02/15/24 10:06 BMI result Body Mass Index 38.2 Skin Other: Scalp: [address] Wound has healed. Assessment & Plan Assessment & Plan (1) Wound, open, scalp: Code(s): S01.00XA - Unspecified open wound of scalp, initial encounter Plan: [place] removed. Patient tolerated the procedure well. Coding Level of Care Code Est Pt Level 3 (76005) Diagnoses Wound, open, scalp S01.00XA
== END 2024-02-15 11:27 | disposition home or self-care (01) ==
PROVIDERS: PCP Internal Medicine; Visit Provider Internal Medicine
DX: S01.00XA Unspecified open wound of scalp, initial encounter (principal)
CPT/HCPCS: 99213

== ENCOUNTER 2024-02-29 13:35 | Outpatient (AMB) | payer OTHER, SELFPAY ==
--- NOTE | 2024-02-29 13:55 | AM.OFFWIN_ITS ---
Intake Vital Signs 02/29/24 13:57 Height 5 ft 7 in Weight 244 lb BMI 38.2 BP 140/90 H Blood Pressure Location Rt brachial Position Sitting Pulse 91 Pulse Source Pulse Oximeter Temp 98.7 F Temp Source Oral Pulse Oximetry (%) 98 Oxygen Delivery Method Room Air Intake Visit Reasons: EP cough, congestion, fever Intake Note: pt c/o cough, congestion and fever. Started 2 days ago Patient Tobacco Use Status: Former Tobacco user Allergies No Known Allergies [No Known Allergies*] Allergy (Verified 02/29/24 13:55) Do you need a note to return to daycare/school/sports/work: No HPI HPI Comments History of Present Illness Details 53 y/o male patient who presents to the walk in clinic with c/o productive cough, SOB, wheezing and chest tightness x 3 days. Reports subjective fevers at home. [facility] Medical History Colon cancer screening Lumbar degenerative disc disease Anxiety and depression GERD (gastroesophageal reflux disease) Obstructive sleep apnea Erectile dysfunction Hypertension Unilateral post-traumatic osteoarthritis, right knee Insomnia Surgical History S/P right knee arthroscopy No pertinent past surgical history Family History Father Stroke Coronary artery disease Mother Alive and well Family/Other Coronary artery disease Social History Housing: Apartment Alcohol intake: current Alcohol intake frequency: holidays/special occasions only Patient Tobacco Use Status: Former Tobacco user e-Cigarette/Vaping Use: Never Used Second Hand Smoke Exposure: No service: No Current occupational status: unemployed Cognitive needs: No Hearing needs: No Vision needs: No Review of Systems Const All systems reviewed & are unremarkable except as noted in HPI and below Physical Exam Vital Signs: Last Vital Signs Temp 98.7 F 02/29/24 13:57 Pulse 91 02/29/24 13:57 BP 140/90 H 02/29/24 13:57 Pulse Ox 98 02/29/24 13:57 Oxygen Delivery Method Room Air 02/29/24 13:57 BMI result Body Mass Index 38.2 Const General: cooperative and no acute distress Nutritional Appearance: obese Orientation/consciousness: patient oriented x3 HEENT Head: Yes normocephalic Ears: external ears normal and TM abnormal bulging bilateral and with fluid behind the TM bilateral; not erythematous, not perforated and not retracted General nose exam: Normal external nose present Face and sinus: Yes sinuses nontender Mouth: moist mucous membranes Resp Effort & Inspection: normal respiratory effort, able to speak in complete sentences and Actively coughing Auscultation: no crackles, no rales, rhonchi throughout and wheezes lower bilaterally Cardio Heart sounds: S1 normal heart sound present and S2 normal heart sound present Neuro General: patient oriented x3, gait normal and moves all extremities Psych Speech and movement: Normal speech and movement present Assessment & Plan Assessment & Plan (1) Cough in adult: Code(s): R05.9 - Cough, unspecified Plan: OTC cough remedies Ordered Abx and Albuterol inhaler (2) Upper respiratory infection: Code(s): J06.9 - Acute upper respiratory infection, unspecified Qualifiers: URI type: unspecified viral URI Qualified Code(s): J06.9 - Acute upper respiratory infection, unspecified Plan: SARs ordered. Orders: Orders SARS-CoV2/FLU/RSV Today J06.9 - Acute upper respiratory infection, unspecified Medications: New doxycycline hyclate 100 mg PO BID 10 days 20 caps 0RF J06.9 - Acute upper respiratory infection, unspecified, R05.9 - Cough, unspecified benzonatate 100 mg PO TID 90 caps 0RF cough R05.9 - Cough, unspecified Changed From albuterol sulfate 90 mcg/actuation 1 inh inhalation QID PRN 8.5 grams 0RF shortness of breath or wheezing R05.9 - Cough, unspecified To albuterol sulfate 90 mcg/actuation 1 inh inhalation Q4-6H PRN 8.5 grams 0RF shortness of breath or wheezing R05.9 - Cough, unspecified Coding Level of Care Code Est Pt Level 3 (76181) Diagnoses Cough in adult R05.9 Viral upper respiratory tract infection J06.9 URI type: unspecified viral URI Time Spent (min) 15
[2024-02-29 13:57] VITALS: BP 140/90; PULSE 91; TEMP 37.1; O2SAT 98; BMI 38.2
== END 2024-02-29 14:34 | disposition home or self-care (01) ==
PROVIDERS: PCP Internal Medicine; Visit Provider Nurse Practitioner Family
DX: R05.9 Cough, unspecified (principal); J06.9 Acute upper respiratory infection, unspecified
CPT/HCPCS: 99213

== ENCOUNTER 2024-02-29 14:18 | Outpatient (REF) | payer OTHER, SELFPAY ==
[2024-02-29 18:08] LABS: Influenza A PCR NEGATIVE (Negative); Influenza B PCR NEGATIVE (Negative); Resp Syncy Virus RNA Qual PCR NEGATIVE (Negative); SARS COV2 PCR INHOUSE NEGATIVE (Negative)
== END 2024-02-29 14:19 | disposition home or self-care (01) ==
LOC: HO.LAB 14:18
PROVIDERS: Visit Provider Nurse Practitioner Family
DX: J06.9 Acute upper respiratory infection, unspecified (principal)
CPT/HCPCS: 0241U

== ENCOUNTER 2024-05-15 11:25 | Outpatient (AMB) | payer OTHER, SELFPAY ==
[2024-05-15 11:30] VITALS: BP 140/90; PULSE 110; O2SAT 98; BMI 39.9
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
[2024-05-15 11:41] VITALS: BP 138/80
== END 2024-05-15 12:04 | disposition home or self-care (01) ==
LOC: HO.HMCH 11:26
PROVIDERS: PCP Internal Medicine; Visit Provider Internal Medicine
DX: Z00.00 Encounter for general adult medical examination without abnormal findings (principal); I10 Essential (primary) hypertension; Z68.39 Body mass index [BMI] 39.0-39.9, adult; E66.9 Obesity, unspecified; K21.9 Gastro-esophageal reflux disease without esophagitis; R73.01 Impaired fasting glucose; F41.1 Generalized anxiety disorder

== ENCOUNTER → 2024-05-15 11:25 | Outpatient (BNVA) | payer OTHER, SELFPAY | PROVIDERS: PCP Internal Medicine; Visit Provider Internal Medicine | DX: Z00.00 Encounter for general adult medical examination without abnormal findings (principal); Z23 Encounter for immunization; I10 Essential (primary) hypertension; K21.9 Gastro-esophageal reflux disease without esophagitis; R73.01 Impaired fasting glucose; E66.9 Obesity, unspecified; F41.1 Generalized anxiety disorder | CPT/HCPCS: 90471; 90656; 96127; 99396 ==

== ENCOUNTER 2024-08-21 10:10 | Outpatient (AMB) | payer OTHER, SELFPAY ==
--- NOTE | 2024-08-21 11:06 | MHC.OFFWIV ---
Intake Vital Signs 08/21/24 11:08 Height 5 ft 7 in Weight 265 lb BMI 41.5 BP 142/90 H Blood Pressure Location Lt brachial Position Sitting Pulse 86 Pulse Source Pulse Oximeter Pulse Oximetry (%) 98 Oxygen Delivery Method Room Air Intake Visit Reasons: EP-rt side lower back pain Intake Note: Patient here for right sided lower back pain that started last night, could be related to shoveling snow Patient Tobacco Use Status: Current someday Tobacco user Allergies No Known Allergies [No Known Allergies*] Allergy (Verified 08/21/24 11:09) Do you need a note to return to daycare/school/sports/work: No HPI HPI Comments History of Present Illness Details History of Present Illness - The patient is a 53-year-old male presenting with acute lower back pain x2 days. - Experienced lower back pain initiation following snow shoveling, resulting in significant discomfort and functional limitation. - Reports localized right-sided lower back pain accompanied by severe discomfort affecting nocturnal rest and daily activities. - No neurological symptoms such as bowel or bladder incontinence were reported. - Previous management attempts involved NSAIDs and muscle relaxants with unsatisfactory relief. - Has a history of using meloxicam effectively for pain management. - Uses heating pads and pain patches as an adjunct for symptom control without much relief. Physical Exam General: Cooperative, healthy appearing, comfortable, no acute distress and well developed Orientation: Patient oriented x3 Head: Normal to inspection Ears: Hearing grossly normal bilaterally Nose: Normal external nose present Face and sinus: Normal facial exam Eyes: Appearance normal, both eyes and all related structures Neck: Normal visual inspection and Yes full ROM Respiratory: Normal respiratory effort and able to speak in complete sentences. Skin: No rashes or lesions noted Neuro: Patient oriented x3 Extremities: Normal to inspection COUNT INCLUDES THE [facility] Medical History Colon cancer screening Lumbar degenerative disc disease Anxiety and depression GERD (gastroesophageal reflux disease) Obstructive sleep apnea Erectile dysfunction Hypertension Unilateral post-traumatic osteoarthritis, right knee Insomnia Surgical History S/P right knee arthroscopy No pertinent past surgical history Family History Father Stroke Coronary artery disease Mother Alive and well Family/Other Coronary artery disease Social History (Updated 05/15/24 @ 11:47 by Tenzin Vallecillo MD) Housing: Apartment Alcohol intake: current Alcohol intake frequency: holidays/special occasions only Comment: QD 7 drinks Patient Tobacco Use Status: Current someday Tobacco user Cigarettes Per Day: 6 Years Smoked: 4 cigarettes a day e-Cigarette/Vaping Use: Never Used Second Hand Smoke Exposure: No service: No Current occupational status: unemployed Cognitive needs: No Hearing needs: No Vision needs: No Review of Systems Const All systems reviewed & are unremarkable except as noted in HPI and below Physical Exam Vital Signs: Last Vital Signs Pulse 86 08/21/24 11:08 BP 142/90 H 08/21/24 11:08 Pulse Ox 98 08/21/24 11:08 Oxygen Delivery Method Room Air 08/21/24 11:08 BMI result Body Mass Index 41.5 Back/Spine/Pelvis Cervical Spine: normal cervical lordosis, cervical ROM normal, No cervical muscular tenderness and No Cervical spine tenderness Thoracic/Lumbar Spine: paraspinal muscle tenderness on the right in the upper lumbar and in the mid lumbar, thoraco-lumbar ROM limited with forward flexion, with lateral flexion to the right, with lateral flexion to the left, with rotation to the right and with rotation to the left, No thoracic spinal tenderness and No lumbar spinal tenderness Assessment & Plan Assessment & Plan (1) Low back pain: Code(s): M54.50 - Low back pain, unspecified Qualifiers: Chronicity: acute Back pain laterality: right Sciatica presence: without sciatica Qualified Code(s): M54.50 - Low back pain, unspecified Plan: Meloxicam was prescribed for the patient?s acute lower back pain following physical exertion, with explicit instructions to use it initially for three days and then as needed for flare-ups, while concurrently using Tylenol if necessary. Cyclobenzaprine may be taken to manage persistent muscle spasms. Heating pads with lidocaine are recommended to provide additional symptom relief. Avoidance of other NSAIDs is advised due to potential cumulative effects. Regular monitoring of pain relief and jewish of function will guide further patient management. Patient was informed and verbally consented to the use of an ambient scribe for clinic note documentation during this visit. Medications: Refilled meloxicam 15 mg PO DAILY 14 tabs 0RF Coding Level of Care Code Est Pt Level 3 (75747) Diagnoses Acute right-sided low back pain without sciatica M54.50 Chronicity: acute Back pain laterality: right Sciatica presence: without sciatica
[2024-08-21 11:08] VITALS: BP 142/90; PULSE 86; O2SAT 98; BMI 41.5
== END 2024-08-21 11:19 | disposition home or self-care (01) ==
PROVIDERS: PCP Internal Medicine; Visit Provider Physician Assistant
DX: M54.50 Low back pain, unspecified (principal)

== ENCOUNTER → 2024-08-21 10:10 | Outpatient (BNVA) | payer OTHER, SELFPAY | PROVIDERS: PCP Internal Medicine | DX: M54.50 Low back pain, unspecified (principal) | CPT/HCPCS: 99212 ==

== ENCOUNTER 2024-09-18 11:41 | Outpatient (AMB) | payer OTHER, SELFPAY ==
--- NOTE | 2024-09-18 11:46 | A.OFFPC_ITS ---
Vital Signs 09/18/24 11:47 09/18/24 12:10 Height 5 ft 7 in Weight 261 lb BMI 40.9 BP 162/98 H 140/80 H Blood Pressure Location Lt brachial Lt brachial Position Sitting Sitting Pulse 88 Pulse Source Pulse Oximeter Pulse Oximetry (%) 98 Oxygen Delivery Method Room Air Intake Visit Reasons: Follow up HTN Allergies No Known Allergies [No Known Allergies*] Allergy (Verified 09/18/24 11:47) Medication List - Last Reconciled 09/18/24 by Tenzin Vallecillo MD alprazolam 0.25 mg PO DAILY blood pressure monitor As directed [email or web address],med As directed 20-30 mm HG cyclobenzaprine 5 mg PO BEDTIME diltiazem HCl CD 240 mg PO DAILY lisinopril 30 mg PO DAILY meloxicam 15 mg PO DAILY omeprazole 20 mg PO DAILY quetiapine 50 mg PO BEDTIME sertraline 100 mg PO DAILY Tobacco use date assessed: 09/18/24 Dental Screening Dental Screen Date: 09/18/24 Did you have a dental visit in the last 12 months?: Yes Did you have a dental problem in the last 6 months where you did not have access to dental care?: No Was dental information given to patient?: Patient has dentist [facility] Medical History Colon cancer screening Lumbar degenerative disc disease Anxiety and depression GERD (gastroesophageal reflux disease) Obstructive sleep apnea Erectile dysfunction Hypertension Unilateral post-traumatic osteoarthritis, right knee Insomnia Surgical History S/P right knee arthroscopy No pertinent past surgical history Family History Father Stroke Coronary artery disease Mother Alive and well Family/Other Coronary artery disease Social History (Updated 05/15/24 @ 11:47 by Tenzin Vallecillo MD) Housing: Apartment Alcohol intake: current Alcohol intake frequency: holidays/special occasions only Comment: QD 7 drinks Patient Tobacco Use Status: Current someday Tobacco user Tobacco use type: Cigarette Cigarettes Per Day: 6 Years Smoked: 4 cigarettes a day e-Cigarette/Vaping Use: Never Used Second Hand Smoke Exposure: No service: No Current occupational status: unemployed Cognitive needs: No Hearing needs: No Vision needs: No Questionnaire PHQ-9 Over the last 2 weeks, how often have you been bothered by any of the following problems? 1. Little interest or pleasure in doing things: several days 2. Feeling down, depressed, or hopeless: several days 3. Trouble falling or staying asleep, or sleeping too much: nearly every day 4. Feeling tired or having little energy: nearly every day 5. Poor appetite or overeating: more than half the days 6. Feeling bad about yourself - or that you are a failure or have let yourself or your family down: nearly every day 7. Trouble concentrating on things, such as reading the newspaper or watching television: nearly every day 8. Moving or speaking so slowly that other people could have noticed. Or the opposite - being so fidgety or restless that you have been moving around a lot more than usual: nearly every day 9. Thoughts that you would be better off or of hurting yourself in some way : not at all Total score: 19 Depression Screening Interpretation: Positive Depression Screening Done: Yes 98537 - PHQ-9 Billing: Yes Source: Developed by Drs. Claudio Huggins, Diana Brown, Jorge Murillo and colleagues, with an educational ron from [employer]. Thrive Questionnaire Date Thrive assessed: 09/18/24 AUDIT C Alcohol Use Questionnaire (AUDIT-C) 1. How often do you have a drink containing alcohol?: 4 or more times a week 2. How many drinks containing alcohol do you have on a typical day when you are drinking?: 5 or 6 3. How often do you have six or more drinks on one occasion?: Less than monthly Total Score: 7 MICHELLE-7 AMB Questionnaire MICHELLE-7 Date MICHELLE - 7 assessed: 09/18/24 Feeling nervous, anxious, or on edge: 3 = Nearly every day Not being able to stop or control worryin = Nearly every day Worrying too much about different things: 3 = Nearly every day Trouble relaxin = Not at all Being so restless that it is hard to sit still: 3 = Nearly every day Becoming easily annoyed or irritable: 3 = Nearly every day Feeling afraid as if something awful might happen: 3 = Nearly every day Total MICHELLE-7 score (0-4 normal; 5-9 mild; 10-14 moderate; 15-21 severe): 18 Source: Developed by Drs. Claudio Huggins, Diana Brown, Jorge Murillo and colleagues, with an educational ron from [employer]. MICHELLE-7 Assessment Billing MICHELLE-7 Assessment Tool: MICHELLE-7 Assessment 17090 Physical exam (Primary Care) Vital Signs: Last Vital Signs Pulse 88 09/18/24 11:47 BP 140/80 H 09/18/24 12:10 Pulse Ox 98 09/18/24 11:47 Oxygen Delivery Method Room Air 09/18/24 11:47 BMI result Body Mass Index 40.9 Tobacco/Smoking Status: Tobacco use Status Tobacco use date assessed 09/18/24 09/18/24 11:52 Patient Tobacco Use Status Current someday Tobacco 09/18/24 11:52 Tobacco use type Cigarette 09/18/24 11:52 e-Cigarette/Vaping Use Never Used 09/18/24 11:52 PHQ-9: PHQ-9 Score PHQ-9: Total score 19 09/18/24 12:07 Depression Screening Interpretation: Positive Thrive Assessment: Date of Thrive Assessment Date Thrive assessed 09/18/24 09/18/24 11:52 Const General: alert; No acute distress Eyes Conjunctivae: conjunctivae normal Resp Auscultation: clear to auscultation bilaterally Cardio Rate: regular rate Rhythm: regular rhythm GI Inspection: Yes normal to inspection Extrem General: Yes normal to inspection and No edema Coding Level of Care Code Est Pt Level 4 (86896) Complex EM visit Add On G2211 Diagnoses Obesity (BMI 30.0-34.9) E66.9 Essential hypertension I10 Hypertension type: essential hypertension Generalized anxiety disorder F41.1 Additional Codes MICHELLE-7 Assessment Billing - MICHELLE-7 Assessment Tool: MICHELLE-7 Assessment 29286 ([id number]) PHQ-9 - 05459 - PHQ-9 Billing: Yes ([id number]) Assessment & Plan Assessment & Plan (1) Obesity (BMI 30.0-34.9): Code(s): E66.9 - Obesity, unspecified Category: Medical Plan: Diet and exercise (2) Hypertension: Code(s): I10 - Essential (primary) hypertension Category: Medical Qualifiers: Hypertension type: essential hypertension Qualified Code(s): I10 - Essential (primary) hypertension Plan: Patient is supposed to be on lisinopril 30 diltiazem 240. (3) Generalized anxiety disorder: Comment: has the counselling [place] Q 2 weeks Code(s): F41.1 - Generalized anxiety disorder Category: Medical Plan: Continue with counseling and therapy Plan History of Present Illness The patient is a 53-year-old male presenting with a follow-up for blood pressure management and obesity. He has a significant history of essential hypertension, which remains inadequately controlled. His medication regimen includes Lisinopril 30 mg and Diltiazem 240 mg, although recent blood pressure readings remain high, notably linked to alcohol consumption. The patient reports difficu lty with weight management and related health impacts. He has acknowledged recent depression and anxiety treats with ongoing counseling, contributing to challenges with compliance and lifestyle adjus tments. The patient also reports gastroesophageal reflux disease symptoms, controlled through lifestyle management. Past ophthalmological assessments have identified hypertensive retinopathy, open-angle glaucoma, and retinal ischemia. Recent low back pain episodes were treated with anti-inflammatory agents and muscle relaxants. He has been identified with morbid obesity, affecting his overall health management. Health Maintenance - Advised updating blood work due to outdated lab results since 2021. - Emphasized lifestyle changes, including increased physical activity and healthier dietary habits, to address obesity. - Counseling and psychological therapy continuation for generalized anxiety disorder and depression management. - Encouraged elimination of alcohol consumption to support blood pressure control and overall health improvement. Social History - Alcohol use: Reports drinking beer over weekends, impacts blood pressure control. - Physical activity: Limited engagement, mostly stays indoors. - Current weight management: Challenges noted, morbid obesity present. - Psychological stress: Discusses impacts of anxiety and depression on daily life and health. Review of Systems - Cardiovascular: Reports poorly controlled blood pressure, especially after alcohol intake. - Psychological: Reports ongoing anxiety and episodes of depression. - Musculoskeletal: Reports low back pain. Physical Exam Results Plan Continue current antihypertensive medications of Lisinopril 30 mg and Diltiazem 240 mg while encouraging the patient to make dietary modifications for weight management. Limiting alcohol consumption is crucial to stabilize blood pressure and prevent potential exacerbations. Ensure adherence to counseling services to support generalized anxiety disorder and depression. Schedule a follow-up ophthalmological assessment to evaluate any progress concerning hypertensive retinopathy, open-angle glaucoma, and retinal ischemia. The patient should follow up on pending lab work for more up-to-date health monitoring. Regular physical activity is imperative to enhance weight management efforts and improve cardiovascular health outcomes. Patient was informed and verbally consented to the use of an ambient scribe for clinic note documentation during this visit. Discussion Notes During our discussion, I emphasized the importance of maintaining hypertension management through a consistent medication regimen and reducing alcohol intake, which currently contributes to episodic high blood pressure. We explored the patient's challenges with morbid obesity, emphasizing increased physical activity and dietary management as pickering strategies. I reiterated the need to continue psychological counseling to address anxiety and depression. The patient acknowledged and agreed to the plan of reducing alcohol use and was informed of potential worsening scenarios if risk factors are not mitigated. Follow-up blood work and an ophthalmological examination were scheduled to reassess and refine management plans accordingly. The patient agreed with and consented to the outlined management and follow-up plans to optimize health outcomes. Patient Instructions - Continue taking Lisinopril 30 mg and Diltiazem 240 mg as prescribed. - Limit alcohol intake to support blood pressure management. - Engage in regular physical activity and adopt a healthier diet. - Attend counseling sessions as planned for anxiety and depression. - Schedule and attend follow-up lab work and ophthalmological evaluations. - Report any significant changes in health, especially blood pressure fluctuations or vision changes.
[2024-09-18 11:47] VITALS: BP 162/98; PULSE 88; O2SAT 98; BMI 40.9
[2024-09-18 12:10] VITALS: BP 140/80
--- OUTSIDE RECORDS SUMMARY | 2024-09-18 13:20 | XMS_ITS | Encounter Summary ---
Author Organization [employer] Address [address] [place] [address] Care Team Providers Care Furnace Clerk Name Role Phone Unavailable Primary Care Provider Unavailabl e Reason for Visit * Reason Onset Date Comments Appointment 07/28/2022 Patient called i n today 08/05 to cancel appt today with Dr. Garcia due to emergency. He wants to rescchedule I informed patient the appt was yesterday 08/04 at 10:15. He said he thought it was today and that is why he was calling today. He would like to reschedule. Encounter Details Date Type Department Care Team (Late st Contact Info) Description 07/28/2022 Telephone [facility] AD[facility]AL [address] [place] [address] Tripp Garcia DMD [address] [place] [address] Appointment (Patient called in today 08/05 to cancel appt today with Dr. Garcia due to emergency. He wants to rescchedule I informed patient the appt was yesterday 08/04 at 10:15. He said he thought it was today and that is why he was calling today. He would like to reschedule. ) Social History Tobacco Use Types Packs/Day Years Used Date Smoking Tobacco: Never Smokeless Tobacco: Never Alcohol Use Standard Drinks/Week Comments Yes 6 (1 standard drink = 0.6 oz pur e alcohol) Sex and Gender Information Value Date Recorded Sex Assigned at Male 05/11/2022 10:15 AM EDT Legal Sex Male 10:15 AM EDT Gender Identity Male 05/11/2022 10:15 AM EDT Sexual Orientation Straight 05/11/2022 10 :15 AM EDT COVID-19 Exposure Response Date Recorded In the last 10 days, have yo u been in contact with someone who was confirmed or suspected to have Coronavirus/COVID-19? No / Unsure 06/30/2022 9:54 AM EST documented as of this encounter Miscellaneous Notes * Telephone Encounter - Patricia Vargas - 08/05/2022 8:57 AM EST Patient called in today 08/05 to cancel appt today with Dr. Garcia due to emergency. He wants to rescchedule I informed patient the appt was yesterday 08/04 at 10:15. He said he thought it was today and that is why he was calling today. He would like to reschedule. * Telephone Encounter - Patricia Vargas - 07/28/2022 9:38 AM EST Patient can't make it today's appt due to his having surgery and unable to make it. He would like to reschedule with Dr. Garcia. documented in this encounter Plan of Treatment Not on file documented as of this encounter Visit Diagnoses Not on filedocumented in this encounter
--- OUTSIDE RECORDS SUMMARY | 2024-09-18 13:20 | XMS_ITS | Clinical Summary ---
Author Organization [facility] Address [address] [place] [address] Care Team Providers Care It Consultant Name Role Phone Whitney Quiñones DEYA Primary Care Provider [phone] Source Comments PLEASE NOTE, if this patient is a minor, it may be UNLAWFUL to discuss sensitive information that is contained in these records (such as FAMILY PLANNING, MENTAL HEALTH or SUBSTANCE ABUSE) with the minor patient's parent or other person without the patient's specific authorization.[facility] Social History Tobacco Use Types Packs/Day Years Used Date Smoking Tobacco: Never Assessed Sex and Gender Information Value Date Recorded Sex Assigned at Not on file Legal Sex Male 7:46 AM PST Gender Identity Not on file Sexual Orientation Not on file Plan of Treatment Not on file Insurance ID MEDICAID DENTAL Care Teams It Consultant Relationship Specialty Start Date End Date Whitney Quiñones DMD [address] [place] [address] PCP - General 09/20/20
--- OUTSIDE RECORDS SUMMARY | 2024-09-18 13:20 | XMS_ITS | Clinical Summary ---
Author Organization [employer] [facility] Address [address] [place] [address] [address] [place] [address] Care Team Providers Care Gas Operator Name Role Phone Unavailable Primary Care Provider Unavailabl e Allergies No known active allergies Medications lisinopril 30 MG tablet Take 1 tablet by mouth at bed time. Active omeprazole (PriLOSEC) [address] capsule Take 1 capsule by mouth at bed time. Active Social History Tobacco Use Types Packs/Day Years Used Date Smoking Tobacco: Never Smokeless Tobacco: Never Tobacco Cessation:Counseling Given: No Alcohol Use Standard Drinks/Week Comments Yes 6 (1 standard drink = 0.6 oz pur e alcohol) Sex and Gender Information Value Date Recorded Sex Assigned at Male 05/11/2022 10:15 AM EDT Legal Sex Male 10:15 AM EDT Gender Identity Male 05/11/2022 10:15 AM EDT Sexual Orientation Straight 05/11/2022 10 :15 AM EDT Last Filed Vital Signs Vital Sign Reading Time Taken Comments Blood Pressure 127/85 06/30/2022 10:08 AM EST Pulse 90 06/30/2022 10:08 AM EST Temperature - - Respiratory Rate - - Oxygen Saturation - - Inhaled Oxygen Concentration - - Weight - - Height - - Body Mass Index - - Plan of Treatment Health Maintenance Due Date Last Done Comments Anal Pap 1971 CT Colonography 1971 Colonoscopy 1971 Colorectal Cancer Screening 1971 Dental Oral Exam 1971 Dental Prophylaxis 1971 Dental X-Ray: Bitewings 1971 Dental X-Ray: Full Mouth 1971 Depression Screening 1971 FIT DNA/Cologuard 1971 FIT 1971 FOBT 1971 HIV Screening 1971 Lipid Panel 1971 SDOH Screening 1971 Sigmoidoscopy 1971 Alcohol/Substance Use Screening 1983 Family Planning (PISQ) 11/21/1986 Hepatitis C Screening 11/21/1989 Hepatitis A Vaccines (1 of 2 - Risk 2-dose series) 11/21/1990 Hepatitis B Vaccines (1 of 3 - 19+ 3-dose series) 11/21/1990 Pneumococcal Vaccine: 50+ Years (1 of 1 - PCV) 11/21/2021 Zoster Vaccines (1 of 2) 11/21/2021 Tobacco Screening 09/29/2023 09/28/2022 COVID-19 Vaccine (3 - 2023- season) 2024 11/16/2020, 10/26/2020 Influenza Vaccine (#1) 2024 2, 04/30/2021, 05/22/2020, Additional history exists DTaP/Tdap/Td Vaccines (2 - Td or Tdap) 01/25/2028 01/24/2018 RSV Patients and Patients Aged 60 years or older (1 - 1-dose 75+ series) 11/21/2046 HIB Vaccines Aged Out No longer eligi ble based on patient's age to complete this topic HPV Vaccines Aged Out No longer eligi ble based on patient's age to complete this topic IPV Vaccines Aged Out No longer eligi ble based on patient's age to complete this topic Meningococcal Vaccine Aged Out No kishore chano eligible based on patient's age to complete this topic Pneumococcal Vaccine: Pediatrics (0 to 5 Years) and At-Risk Patients (6 to 49) Years) Aged Out No longer eligible based on patient's age to complete this topic RSV under 20 months Aged Out No longe r eligible based on patient's age to complete this topic Rotavirus Vaccines Aged Out No longer eligible based on patient's age to complete this topic Insurance [place] STAND AD[place]
--- OUTSIDE RECORDS SUMMARY | 2024-09-18 13:20 | XMS_ITS | Encounter Summary ---
Author Organization [employer] Address [address] [place] [address] Care Team Providers Care Electrical And Radio Mechanic Name Role Phone Unavailable Primary Care Provider Unavailabl e Reason for Visit * Reason Onset Date Comments Appointment 08/25/2022 Patient had appt 08/26 in [facility] but is unable to do Wed. He prefers a Wednesday. Explained to patient that Oral Surgery only comes 1 time a week. Can work with a Tues in [facility]. Would like to rs appt for [facility] due to convenience in schedule DR Encounter Details Date Type Department Care Team (Late st Contact Info) Description 08/25/2022 Telephone [facility] ADULT DENTAL [address] [place] [address] Tripp Garcia, DMD [address] [place] [address] Appointment (Patient had appt 08/26 in [facility] but is unable to do Wed. He prefers a Wednesday. Explained to patient that Oral Surgery only comes 1 time a week. Can work with a Tues in [facility]. Would like to rs appt for [facility] due to convenience in schedule ) Social History Tobacco Use Types Packs/Day [...] Orientation Straight 05/11/2022 10 :15 AM EDT documented as of this encounter Miscellaneous Notes * Telephone Encounter - Patricia Snells - 08/25/2022 3:01 PM EST Patient had appt 08/26 in [facility] but is unable to do Wed. He prefers a Wednesday. Explained to patient that Oral Surgery only comes 1 time a week. Can work with a Tues in [facility]. [facility] documented in this encounter Plan of Treatment Not on file documented as of this encounter Visit Diagnoses Not on filedocumented in this encounter
--- OUTSIDE RECORDS SUMMARY | 2024-09-18 13:20 | XMS_ITS | Encounter Summary ---
Author Organization [email or web address] Address [address] [place] [address] Care Team Providers Care Oxidation Engineer Name Role Phone Unavailable Primary Care Provider Unavailabl e Encounter Details Date Type Department Care Team (Latest Contact Info) Description 01/28/2021 Abstract [facility] CONVERSIONS Dental, Provider, DDS Social History Tobacco Use Types Packs/Day Years Used Date Smoking Tobacco: Never Assessed Sex and Gender Information Value Date Recorded Sex Assigned at Male 05/11/2022 10:15 AM EDT Legal Sex Male 10:15 AM EDT Gender Identity Male 05/11/2022 10:15 AM EDT Sexual Orientation Straight 05/11/2022 10 :15 AM EDT documented as of this encounter Plan of Treatment Not on file documented as of this encounter Visit Diagnoses Not on filedocumented in this encounter
--- OUTSIDE RECORDS SUMMARY | 2024-09-18 13:20 | XMS_ITS | Patient Health Record ---
Author Organization [facility] Address [address] [place] [id number] Care Team Providers Care Parcel Contractor Name Role Phone Po Tenzin CRAIG Primary Care Provider Monty Smith Jr Unavailable Allergies No Known Allergies Reason For Referral No Information Medications Medication SIG (Take, Route, Frequency, Duration) Notes Start Date End Date Status traZODone HCl 150 MG 1 tablet at bedtime Orally Once a day for 30 day(s) Active Meloxicam 15 MG 1 tablet Orally Once a day for 30 day(s) Active Lisinopril 30 MG 1 tablet Orally Once a day for 30 day(s) Active Omeprazole 20 MG 1 capsule 30 minutes before morning meal Orally Once a day for 30 day(s) Active Dulcolax (colon prep) 5 MG take at 3:00 p.m and 7:00p.m. Orally two tablets twice a day for one day for 1 day 12/16/2021 Active MiraLax (colon prep) 17 GM/SCOOP mixed with Gatorade or Crystal Light Orally begin at 5:00 p.m. the day before the procedure for 1 day 12/15/2021 Active dilTIAZem HCl 90 MG as directed Orally t wice a day Active Docusate Sodium 100 MG 1 capsule as need ed Orally Once a day for 30 day(s) Active Immunizations Vaccine Route Administration Date Status Comme nts Influenza Unknown 04/29/2021 Administered Social History Tobacco Use: Social History Observation Description Date Details (start date - stop date) Never Smoker NA - NA Tobacco Use/Smoking Question Answer Notes Patient is a nonsmoker Alcohol Screen Question Answer Notes Did you have a drink contain ing alcohol in the past year? Yes How often did you have a dri nk containing alcohol in the past year? 4 or more times a week (4 points) How many drinks did you have on a typical day when you were drinking in the past year? 5 or 6 drinks (2 points) How often did you have 6 or more drinks on one occasion in the past year? Daily or almost daily (4 points) Points 10 Interpretation Positive Problems Problem Type SNOMED Code ICD Code Onset Dates Problem Status W/U Status Risk Notes Problem 495532834 Colon cancer screening (Z12.11) Active confirmed Problem 486149174 intermediate accountant (current) use of non-steroidal anti-inflammato cami (NSAID) (Z79.1) Active confirmed Plan Of Treatment Future Test Test Name Order Date COLONOSCOPY 12/15/2021 Insurance Providers Payer Name Payer Address Payer Phone Subscriber Number Group Number Insured Name Patient Relationship to Insured Coverage Start Date Coverage End Date [facility] [address] [address] [place], [place] [id number] MAGNUS CHONG Self - patient is the insured Medical (General) History Medical History History ICD Code Hypertension Insomnia Gastroesophageal reflux disease Knee pain Surgical History Surgery Date(Month/Year) Knee surgery 2016
--- OUTSIDE RECORDS SUMMARY | 2024-09-18 13:20 | XMS_ITS | Encounter Summary ---
Author Organization [employer] [facility] [employer] Address [address] [place] [address] Care Team Providers Care School Photograph Editor Name Role Phone Unavailable Primary Care Provider Unavailabl e Encounter Details Date Type Department Care Team (Latest Contact Info) Description 03/09/2022 Abstract [facility] CONVERSIONS Dental, Provider, DDS Social History [...]
--- OUTSIDE RECORDS SUMMARY | 2024-09-18 13:20 | XMS_ITS | Encounter Summary ---
Author Organization [employer] Address [address] [place] [address] Care Team Providers Care Software Engineer Web Applications Name Role Phone Unavailable Primary Care Provider Unavailabl e Encounter Details Date Type Department Care Team (Late st Contact Info) Description 06/10/2022 Abstract [facility] ADULT DENTAL [address] [place] [address] Dental, Provider, DDS Social History Tobacco Use [...] on file documented as of this encounter Procedures Procedure Name Priority Date/Time Associated Diagnosis Comments 10 PREFABRICATED POST AND CORE IN ADDITION TO CROWN Routine 06/10/2022 12:00 AM EST 9 PREFABRICATED POST AND CORE IN ADDITION TO CROWN Routine 06/10/2022 12:00 AM EST 8 PREFABRICATED POST AND CORE IN ADDITION TO CROWN Routine 06/10/2022 12:00 AM EST 10 CROWN - PORCELAIN/CERAMIC Routine 06/10/2022 12:00 AM EST 9 CROWN - PORCELAIN/CERAMIC Routine 06/10/2022 12:00 AM EST 8 CROWN - PORCELAIN/CERAMIC Routine 06/10/2022 12:00 AM EST 7 M COMPOSITE FILLING Routine 06/10/2022 12:00 AM EST 19 O AMALGAM FILLING Routine 06/10/2022 12:00 AM EST 1 O AMALGAM FILLING Routine 06/10/2022 1 2:00 AM EST 8 ROOT CANAL Routine 12/04/2020 12:00 AM EDT 18,30,21 PARTIAL DENTURE - RESIN Routine 11/01/2020 12:00 AM EDT 2,4,5,12,13,14,15 PARTIAL DENTURE - RESIN Routine 11/01/2020 12:00 AM EDT 10 ROOT CANAL Routine 09/30/2020 12:00 AM EDT 9 ROOT CANAL Routine 09/17/2020 12:00 AM EST documented in this encounter Visit Diagnoses Not on filedocumented in this encounter
== END 2024-09-18 12:17 | disposition home or self-care (01) ==
PROVIDERS: PCP Internal Medicine; Visit Provider Internal Medicine
DX: I10 Essential (primary) hypertension (principal); F41.1 Generalized anxiety disorder; E66.9 Obesity, unspecified; Z68.41 Body mass index [BMI] 40.0-44.9, adult

== ENCOUNTER → 2024-09-18 11:41 | Outpatient (BNVA) | payer OTHER, SELFPAY | PROVIDERS: PCP Internal Medicine; Visit Provider Internal Medicine | DX: E66.9 Obesity, unspecified (principal); F41.1 Generalized anxiety disorder; I10 Essential (primary) hypertension | CPT/HCPCS: 96127; 99212 ==

== ENCOUNTER 2024-10-21 09:06 | Outpatient (AMB) | payer OTHER, SELFPAY ==
--- OUTSIDE RECORDS SUMMARY | 2024-10-21 09:08 | XMS_ITS | Clinical Summary ---
Author Organization [employer] Address [address] [place] [address] [address] [place] [address] Care Team Providers Care Manager Sports Name Role Phone Unavailable Primary Care Provider [...]
--- OUTSIDE RECORDS SUMMARY | 2024-10-21 09:08 | XMS_ITS | Encounter Summary ---
Author Organization [email or web address] Address [address] [place] [address] Care Team Providers Care Tamping Machine Operator Road Forms Name Role Phone Unavailable Primary Care Provider Unavailabl e Encounter Details Date Type Department Care Team (Late st Contact Info) Description 06/10/[address] [facility] ADULT DENTAL [address] [place] [address] Dental, Provider, DDS Social History Tobacco Use [...]
--- OUTSIDE RECORDS SUMMARY | 2024-10-21 09:08 | XMS_ITS | Clinical Summary ---
Author Organization [facility] Address [address] [place] [address] Care Team Providers Care State Patrol Officer Name Role Phone Whitney Quiñones DEYA Primary Care Provider [phone] Source Comments PLEASE NOTE, if this patient [...] Plan of Treatment Not on file [place] Care Teams State Patrol Officer Relationship Specialty Start Date End Date Whitney Quiñones DMD [address] [place] [address] PCP - General 09/20/20
--- OUTSIDE RECORDS SUMMARY | 2024-10-21 09:08 | XMS_ITS | Encounter Summary ---
Author Organization [employer] Address [address] [place] [address] Care Team Providers Care Traveling Nurse Name Role Phone Unavailable Primary Care Provider [...] (Late st Contact Info) Description 07/28/2022 Telephone [facility] ADULT DENTAL [address] [place] [address] Tripp Garcia DMD [address] [place] [address] Appointment (Patient called in today 08/05 to [...]
--- OUTSIDE RECORDS SUMMARY | 2024-10-21 09:08 | XMS_ITS | Encounter Summary ---
Author Organization [employer] Address [address] [facility] [address] [facility] [address] [place] [address] Care Team Providers Care Investment Associate Name Role Phone Unavailable Primary Care Provider Unavailabl e Encounter Details Date Type Department Care Team (Latest Contact Info) Description 01/28/2021 Abstract [facility] CONVERSIONS Dental, Provider, DDS Social History [...]
--- OUTSIDE RECORDS SUMMARY | 2024-10-21 09:08 | XMS_ITS | Encounter Summary ---
Author Organization [employer] Address [address] [facility] [address] [facility] 7[address] [place] [address] Care Team Providers Care Carding Machine Operator Name Role Phone Unavailable Primary Care Provider Unavailabl e Encounter Details Date Type Department Care Team (Latest Contact Info) Description 03/09/2022 Abstract [facility] CONVERSIONS Dental, Provider, DDS Social History [...]
--- OUTSIDE RECORDS SUMMARY | 2024-10-21 09:08 | XMS_ITS | Encounter Summary ---
Author Organization [employer] Address [address] [place] [address] Care Team Providers Care Biodiesel Product Manager Name Role Phone Unavailable Primary Care Provider Unavailabl e Reason for Visit * Reason Onset Date Comments Appointment 08/25/2022 Patient had appt 08/26 in [facility] but is unable to do Wed. He prefers a Wednesday. Explained to patient that Oral Surgery only comes 1 time a week. Can work with a Tues in [facility]. Would like to rs appt for [facility] due to convenience in schedule DR Encounter Details Date Type Department Care Team (Late st Contact Info) Description 08/25/2022 Telephone [facility] ADULT DENTAL [address] [place] [address] Tripp Garcia, DMD [address] [place] [address] Appointment (Patient had appt 08/26 in [facility] but is unable to do Wed. He prefers a Wednesday. Explained to patient that Oral Surgery only comes 1 time a week. Can work with a Tues in [facility]. Would like to rs appt for [facility] due to convenience in schedule ) [...] PM EST Patient had appt 08/26 in [facility] but is unable to do Wed. He prefers a Wednesday. Explained to patient that Oral Surgery only comes 1 time a week. Can work with a Tues in [facility]. [facility] in schedule documented in this encounter Plan of Treatment Not on file documented as of this encounter Visit Diagnoses Not on filedocumented in this encounter
[2024-10-21 09:21] VITALS: BP 132/80; PULSE 99; TEMP 36.6; O2SAT 98; BMI 40.9
--- NOTE | 2024-10-21 09:21 | AM.OFFWIN_ITS ---
Intake Vital Signs 10/21/24 09:21 Height 5 ft 7 in Weight 261 lb BMI 40.9 BP 132/80 Blood Pressure Location Lt brachial Position Sitting Pulse 99 Pulse Source Pulse Oximeter Temp 97.8 F Temp Source Oral Pulse Oximetry (%) 98 Oxygen Delivery Method Room Air Intake Visit Reasons: EP Stomach issues, saliva? Patient Tobacco Use Status: Current someday Tobacco user Allergies No Known Allergies [No Known Allergies*] Allergy (Verified 10/21/24 09:21) Do you need a note to return to daycare/school/sports/work: No HPI HPI Comments History of Present Illness Details Robby presents with complaints of nausea, excessive salivation, and gastrointestinal discomfort, which he has been experiencing for an unspecified period. The patient reports that these symptoms primarily occur at night, particularly after consuming beer and eating late. Robby describes feeling nauseous when working with money and experiencing excessive salivation, which he initially attributed to beer consumption. He notes that these symptoms typically manifest around 2:00 AM. The patient reports going to the bathroom and producing saliva, sometimes clear and sometimes white, about twice during these episodes. He also experiences a sensation of gas, as if he had consumed soda overnight. The patient's symptoms are not limited to nighttime occurrences. He recalls a recent incident where he felt nauseous while attempting to eat a sandwich during the day. Robby also mentions experiencing nausea when visiting a park around 1:00 PM after drinking beer. Robby has been prescribed omeprazole for reflux but admits to sometimes forgetting to take it. He is currently taking a 20 mg dose, which he describes as only one. The patient denies experiencing fever, abdominal pain, or diarrhea associated with his symptoms. The patient's symptoms are impacting his daily life, affecting his eating habits and causing discomfort. He expresses confusion about his condition, stating that he doesn't feel the typical burning sensation associated with heartburn, only experiencing nausea and excessive salivation. [facility] Medical History Colon cancer screening Lumbar degenerative disc disease Anxiety and depression GERD (gastroesophageal reflux disease) Obstructive sleep apnea Erectile dysfunction Hypertension Unilateral post-traumatic osteoarthritis, right knee Insomnia Surgical History S/P right knee arthroscopy No pertinent past surgical history Family History Father Stroke Coronary artery disease Mother Alive and well Family/Other Coronary artery disease Social History (Updated 05/15/24 @ 11:47 by Tenzin Vallecillo MD) Housing: Apartment Alcohol intake: current Alcohol intake frequency: holidays/special occasions only Comment: QD 7 drinks Patient Tobacco Use Status: Current someday Tobacco user Tobacco use type: Cigarette Cigarettes Per Day: 6 Years Smoked: 4 cigarettes a day e-Cigarette/Vaping Use: Never Used Second Hand Smoke Exposure: No service: No Current occupational status: unemployed Cognitive needs: No Hearing needs: No Vision needs: No Review of Systems Const Denies fever(s) GI Denies abdominal pain, Reports heartburn and Reports nausea Physical Exam Vital Signs: Last Vital Signs Temp 97.8 F 10/21/24 09:21 Pulse 99 10/21/24 09:21 BP 132/80 10/21/24 09:21 Pulse Ox 98 10/21/24 09:21 Oxygen Delivery Method Room Air 10/21/24 09:21 BMI result Body Mass Index 40.9 Const General: cooperative, healthy appearing, no acute distress and alert Orientation/consciousness: patient oriented x3 Limitations: no limitations HEENT Head: Yes normal to inspection Ears: hearing grossly normal bilaterally General nose exam: Normal external nose present Resp Effort & Inspection: normal respiratory effort and able to speak in complete sentences Cardio Rate: regular rate GI Inspection: Yes normal to inspection Palpation (GI): Soft to palpation and nontender Skin General skin exam: no rashes or lesions noted Neuro General: patient oriented x3 Extrem General: Yes normal to inspection Assessment & Plan Assessment & Plan (1) Nausea: Code(s): R11.0 - Nausea Plan: Gastroesophageal reflux disease (GERD): - Patient reports symptoms consistent with GERD, including nausea, excessive salivation, and gas - Symptoms are exacerbated by beer consumption and late-night eating - Patient has been inconsistently taking omeprazole for acid reflux - Differential diagnoses include GERD, gastritis, or peptic ulcer disease - Given the timing of symptoms (2 AM) and relation to eating habits, GERD is the most likely diagnosis Plan: - Increase omeprazole to 40 mg PO daily (from current 20 mg dose) - Lifestyle modifications: - Reduce alcohol intake, particularly beer - Avoid late-night eating - Remain upright for at least one hour after eating - Elevate head of bed while sleeping - Follow up with primary care provider for further evaluation and possible referral to gastroenterology - Consider endoscopy if symptoms persist despite medication and lifestyle changes Coding Level of Care Code Est Pt Level 3 (21832) Diagnoses Nausea R11.0
== END 2024-10-21 10:09 | disposition home or self-care (01) ==
PROVIDERS: PCP Internal Medicine; Visit Provider Physician Assistant
DX: R11.0 Nausea (principal)

== ENCOUNTER → 2024-10-21 09:06 | Outpatient (BNVA) | payer OTHER, SELFPAY | PROVIDERS: PCP Internal Medicine | DX: R11.0 Nausea (principal) | CPT/HCPCS: 99212 ==

== ENCOUNTER 2024-12-10 12:33 | Emergency (ER) | payer OTHER, SELFPAY ==
[2024-12-10 12:35] VITALS: BP 178/118; PULSE 102; RESP 20; TEMP 36.7; O2SAT 97; BMI 41.3
--- NOTE | 2024-12-10 12:35 | ED.GENADULT ---
HPI - General Adult General Chief complaint: General Medical Stated complaint: seeking HIV test Time Seen by Provider: 12/10/24 12:56 Source: patient and old records reviewed Mode of arrival: ambulatory Limitations: no limitations History of Present Illness ED Provider: HARRY BAKER narrative: 54 yo male with PMH of GERD, HTN who states his thinks he is cheating on him - he states he is out of work due to injury and has been hanging out with friends. He wants paperwork stating he has no STI. He is aware that we will only be doing syphillis and CTNG testing. MD complaint: requesting STI tests Onset (ago): week(s) (3) Severity: mild Relieving factors: none Exacerbating factors: none Associated symptoms: denies other symptoms Treatments prior to arrival: none Related Data Home Medications ?Medication ?Instructions ?Recorded ?Confirmed quetiapine 50 mg tablet 50 mg PO BEDTIME 02/29/24 09/18/24 sertraline 100 mg tablet 100 mg PO DAILY 02/29/24 09/18/24 buspirone 5 mg tablet 5 mg PO BID 10/21/24 Previous Rx's ?Medication ?Instructions ?Recorded blood pressure monitor #1 ea 01/28/21 karol.stocking,thigh,reg,med #2 ea 03/12/21 alprazolam 0.25 mg tablet 0.25 mg PO DAILY #4 tabs 07/30/22 diltiazem HCl 240 mg 240 mg PO DAILY #90 caps 03/20/24 capsule,extended release 24 hr lisinopril 30 mg tablet 30 mg PO DAILY #90 tabs 05/15/24 omeprazole 20 mg capsule,delayed 20 mg PO DAILY #90 caps 06/28/24 release meloxicam 15 mg tablet 15 mg PO DAILY #30 tabs 11/11/24 loratadine 10 mg tablet 10 mg PO DAILY #90 tabs 11/24/24 cyclobenzaprine 5 mg tablet 5 mg PO BEDTIME #30 tabs 12/08/24 Allergies Allergy/AdvReac Type Severity Reaction Status Date / Time No Known Allergies Allergy Verified 12/10/24 12:38 [No Known Allergies*] Review of Systems Review of Systems: Constitutional : No Fever, No Chills, No Fatigue ENT/Mouth : No sore throat, No Rhinorrhea Eyes: No Eye Pain, No Swelling, No Redness Cardiovascular : No Chest Pain, No SOB, No Dyspnea on Exertion Respiratory : No Cough, No Sputum Gastrointestinal : No Nausea, No Vomiting, No Diarrhea, No abdominal Pain Genitourinary : No Dysuria, No Urinary Frequency, No Hematuria, Musculoskeletal : No joint pain, No Myalgias, No Joint Swelling Skin : No Skin Lesions, No rash Neuro : No Weakness, No Numbness, No Dizziness, no Headache Psych : No Anxiety/Panic, No Depression All other systems reviewed and are negative [facility] Past Medical History Attestation statement: The following information was validated with the patient. Source: old records reviewed Medical History Colon cancer screening Lumbar degenerative disc disease Anxiety and depression GERD (gastroesophageal reflux disease) Obstructive sleep apnea Erectile dysfunction Hypertension Unilateral post-traumatic osteoarthritis, right knee Insomnia Surgical History S/P right knee arthroscopy No pertinent past surgical history Family History Family History Father Stroke Coronary artery disease Mother Alive and well Family/Other Coronary artery disease Social History Social History Housing: Apartment Alcohol intake: current Alcohol intake frequency: holidays/special occasions only Comment: QD 7 drinks Patient Tobacco Use Status: Current someday Tobacco user Tobacco use type: Cigarette Cigarettes Per Day: 6 Years Smoked: 4 cigarettes a day e-Cigarette/Vaping Use: Never Used Second Hand Smoke Exposure: No Use of substances other than those prescribed or required for medical reasons: No Advance Directives: No Advance Directives Information Provided: Yes Do you have a plan to hurt others: No Plan service: No Current occupational status: unemployed Cognitive needs: No Hearing needs: No Vision needs: No Physical Exam ED Vital Signs: Vital Signs - 24 hr 12/10/24 12:35 12/10/24 13:42 Temperature 98.1 F 98.3 F Pulse Rate 102 H 95 Respiratory Rate 20 18 Blood Pressure 178/118 H 165/99 H Pulse Oximetry 97 96 Oxygen Delivery Method Room Air Room Air BMI result Body Mass Index 41.3 Appearance: Alert. Oriented X3. No acute distress. Eyes: Pupils equal, round and reactive to light. ENT: Pharynx normal. Neck: Normal inspection. Neck supple. CVS: Normal heart rate and rhythm. Pulses normal. Respiratory: No respiratory distress. Breath sounds normal. Abdomen: Soft and nontender. Skin: Skin warm and dry. Normal skin color. Normal skin turgor. Extremities: No lower extremity edema. No calf ttp Neuro: Oriented X 3. No motor deficit. No sensory deficit. CN2-12 intact Course Course Course Narrative: RME performed by Sana Emerson PA-C. Patient is a 54 year old assigned male at presenting to the emergency department requesting testing for everything STI related. Patient states he was hanging out with a friend who was a woman and his partner of 32 years is convinced that he cheated and caught things so he wants testing for everything, HIV, Syphillis, CT/NG. Patient states that he has high blood pressure and he did not take his medicine today for it. Detailed physical exam and review of systems are deferred to the primary care pediatrician. Labs ordered. Patient placed back in the waiting room pending room availability and results. Medical Decision Making Medical Decision Making MDM Narrative: 54 yo male with PMH of GERD, HTN here asking for STI testing to show his . [facility] going [facility]. He has no symptoms. There are no medical concerns Differential Diagnosis Differential Diagnoses: The differential diagnosis associated with the presentation includes marital discord Lab Data [facility] Lab Attestation statement: I reviewed the patient's lab results. Labs: Lab Results 12/10/24 Range/Units 13:07 T.pallidum Ab (EIA) Nonreactive (Nonreactive) External Record Review External record reviewed: Outpatient record Discharge Plan Discharge Clinical Impression: Normal exam Patient Disposition: Home, Self-Care Instructions: Normal Exam (ED) Additional Instructions: tests still pending will notify of results this afternoon as discussed Prescriptions: No Action (DME) karol.stocking,thigh,reg,med Misc See Rx Instructions .Route Qty: 2 4RF Rx Instructions: As directed 20-30 mm HG alprazolam 0.25 mg tablet 0.25 mg PO DAILY Qty: 4 0RF diltiazem HCl 240 mg capsule,extended release 24hr 240 mg PO DAILY Qty: 90 1RF omeprazole 20 mg capsule,delayed release(DR/EC) 20 mg PO DAILY Qty: 90 0RF meloxicam 15 mg tablet 15 mg PO DAILY Qty: 30 0RF loratadine 10 mg tablet 10 mg PO DAILY Qty: 90 0RF cyclobenzaprine 5 mg tablet 5 mg PO BEDTIME Qty: 30 1RF (DME) blood pressure monitor Kit See Rx Instructions .ROUTE .MEDSUPPLY Qty: 1 0RF Rx Instructions: As directed sertraline 100 mg tablet 100 mg PO DAILY quetiapine 50 mg tablet 50 mg PO BEDTIME lisinopril 30 mg tablet 30 mg PO DAILY Qty: 90 3RF buspirone 5 mg tablet 5 mg PO BID Interventions: ED Discharge Assessment Last Done: 12/10/24 13:42 Discharge Date/Time: 12/10/24 13:43 Print Language: Maltese
[2024-12-10 13:42] VITALS: BP 165/99; PULSE 95; RESP 18; TEMP 36.8; O2SAT 96
[2024-12-10 13:52] LABS: Syphilis Screen Nonreactive (Nonreactive)
[2024-12-10 15:21] LABS: CT PCR NOT DETECTED (Not Detect.); NG PCR NOT DETECTED (Not Detect.)
== END 2024-12-10 13:43 | disposition home or self-care (01) ==
PROVIDERS: Physician Assistant Medical; Emergency Provider Emergency Medicine; PCP Internal Medicine
DX: Z11.3 Encounter for screening for infections with a predominantly sexual mode of transmission (principal); Z20.2 Contact with and (suspected) exposure to infections with a predominantly sexual mode of transmission; I10 Essential (primary) hypertension
CPT/HCPCS: 36415; 86780; 87491; 87591; 99283; 99284

== ENCOUNTER 2024-12-15 08:06 | Outpatient (AMB) | payer OTHER, SELFPAY ==
--- OUTSIDE RECORDS SUMMARY | 2024-12-15 08:08 | XMS_ITS | Encounter Summary ---
Author Organization [employer] Address [address] [place] [address] [address] [place] [address] Care Team Providers Care Skein Winding Operator Name Role Phone Unavailable Primary Care Provider Unavailabl e Encounter Details Date Type Department Care Team (Latest Contact Info) Description 01/28/2021 Abstract [facility] CONVERSIONS Dental, Provider, DDS Social History [...]
[2024-12-15 08:12] VITALS: BP 130/90; PULSE 99; RESP 15; TEMP 36.9; O2SAT 97; BMI 41.2
--- NOTE | 2024-12-15 08:12 | AM.OFFWIN_ITS ---
Intake Vital Signs 12/15/24 08:12 Height 5 ft 7 in Weight 263 lb BMI 41.2 BP 130/90 H Blood Pressure Location Lt brachial Position Sitting Respiration 15 Pulse 99 Pulse Source Pulse Oximeter Temp 98.5 F Temp Source Oral Pulse Oximetry (%) 97 Oxygen Delivery Method Room Air Intake Visit Reasons: EP-rt hand thumb fungus Intake Note: Pt is here today c/o Rt thumb ?fungus Patient Tobacco Use Status: Current someday Tobacco user Allergies No Known Allergies [No Known Allergies*] Allergy (Verified 12/15/24 08:25) HPI EP-rt hand thumb fungus HPI Details This is a 54-year-old male patient who presents to the walk-in clinic today with question of fungal infection on his right thumb. He states that he bites that thumbnail, and so the nail bed is exposed. His wanted him to be seen because she thinks he has a fungal infection on the nail bed. He denies any drainage, redness, pain, warmth. [facility] Medical History Colon cancer screening Lumbar degenerative disc disease Anxiety and depression GERD (gastroesophageal reflux disease) Obstructive sleep apnea Erectile dysfunction Hypertension Unilateral post-traumatic osteoarthritis, right knee Insomnia Surgical History S/P right knee arthroscopy No pertinent past surgical history Family History Father Stroke Coronary artery disease Mother Alive and well Family/Other Coronary artery disease Social History Housing: Apartment Alcohol intake: current Alcohol intake frequency: holidays/special occasions only Comment: QD 7 drinks Patient Tobacco Use Status: Current someday Tobacco user Tobacco use type: Cigarette Cigarettes Per Day: 6 Years Smoked: 4 cigarettes a day e-Cigarette/Vaping Use: Never Used Second Hand Smoke Exposure: No service: No Current occupational status: unemployed Cognitive needs: No Hearing needs: No Vision needs: No Review of Systems Const All systems reviewed & are unremarkable except as noted in HPI and below Physical Exam Vital Signs: Last Vital Signs Temp 98.5 F 12/15/24 08:12 Pulse 99 12/15/24 08:12 Resp 15 12/15/24 08:12 BP 130/90 H 12/15/24 08:12 Pulse Ox 97 12/15/24 08:12 Oxygen Delivery Method Room Air 12/15/24 08:12 BMI result Body Mass Index 41.2 Const General: cooperative, healthy appearing, comfortable and no acute distress Skin General skin exam: no rashes or lesions noted Extrem Other: right thumb with thickened nail bitten down about retirement down nailbed. Open bed of nail mildly whitish/yellow consistent with mild fungal infection General: Yes capillary refill normal and Yes no clubbing, cyanosis or edema Assessment & Plan Assessment & Plan (1) Onychomycosis of nail of digit of hand: Code(s): B35.1 - Tinea unguium Plan: Advised some [id number] fungal cream topically. Also strongly encouraged patient to try to stop fighting that nail. If he does not improve with treatment or if symptoms worsen, he can return to the clinic for further evaluation. Patient verbalizes understanding and agrees to plan. Coding Level of Care Code Est Pt Level 4 (94347) Diagnoses Onychomycosis of nail of digit of hand B35.1
== END 2024-12-15 08:50 | disposition home or self-care (01) ==
PROVIDERS: PCP Internal Medicine; Visit Provider Nurse Practitioner Family
DX: B35.1 Tinea unguium (principal)

== ENCOUNTER → 2024-12-15 08:06 | Outpatient (BNVA) | payer OTHER, SELFPAY | PROVIDERS: PCP Internal Medicine; Visit Provider Nurse Practitioner Family | DX: B35.1 Tinea unguium (principal) | CPT/HCPCS: 99212 ==

== ENCOUNTER 2024-12-26 09:31 | Outpatient (AMB) | payer OTHER, SELFPAY ==
[2024-12-26 09:35] VITALS: BP 168/96; PULSE 114; O2SAT 98; BMI 40.1
--- NOTE | 2024-12-26 09:35 | A.OFFPC_ITS ---
Vital Signs 12/26/24 09:35 Height 5 ft 7 in Weight 256 lb 2 oz BMI 40.1 BP 168/96 H Blood Pressure Location Lt brachial Position Sitting Pulse 114 H Pulse Source Pulse Oximeter Pulse Oximetry (%) 98 Oxygen Delivery Method Room Air Intake Visit Reasons: 3 Month F/U Medical Assisting Program Director Required: No Accompanied by: Self / Same As Patient Allergies No Known Allergies [No Known Allergies*] Allergy (Verified 12/26/24 09:36) Tobacco use date assessed: 12/26/24 Dental Screening Dental Screen Date: 12/26/24 Did you have a dental visit in the last 12 months?: No Did you have a dental problem in the last 6 months where you did not have access to dental care?: No Was dental information given to patient?: Patient has dentist HPI 3 Month F/U HPI Details PAtient has been forgetting med to take for BP. states in am vomiting brown stuff [facility] Medical History (Updated 12/26/24 @ 09:53 by Tenzin Vallecillo MD) Obesity (BMI 30.0-34.9) Neck pain Back pain Low back pain Colon cancer screening Lumbar degenerative disc disease Anxiety and depression GERD (gastroesophageal reflux disease) Obstructive sleep apnea Erectile dysfunction Hypertension Unilateral post-traumatic osteoarthritis, right knee Insomnia Surgical History S/P right knee arthroscopy No pertinent past surgical history Family History Father Stroke Coronary artery disease Mother Alive and well Family/Other Coronary artery disease Social History Housing: Apartment Alcohol intake: current Alcohol intake frequency: holidays/special occasions only Comment: QD 7 drinks Patient Tobacco Use Status: Current someday Tobacco user Tobacco use type: Cigarette Cigarettes Per Day: 6 Years Smoked: 4 cigarettes a day e-Cigarette/Vaping Use: Never Used Second Hand Smoke Exposure: No service: No Current occupational status: unemployed Cognitive needs: No Hearing needs: No Vision needs: No Questionnaire PHQ-9 Over the last 2 weeks, how often have you been bothered by any of the following problems? 1. Little interest or pleasure in doing things: nearly every day 2. Feeling down, depressed, or hopeless: several days 3. Trouble falling or staying asleep, or sleeping too much: nearly every day 4. Feeling tired or having little energy: not at all 5. Poor appetite or overeating: not at all 6. Feeling bad about yourself - or that you are a failure or have let yourself or your family down: not at all 7. Trouble concentrating on things, such as reading the newspaper or watching television: several days 8. Moving or speaking so slowly that other people could have noticed. Or the opposite - being so fidgety or restless that you have been moving around a lot more than usual: not at all 9. Thoughts that you would be better off or of hurting yourself in some way: not at all Total score: 8 Source: Developed by Drs. Claudio Huggins, Diana Brown, Jorge Murillo and colleagues, with an educational ron from [employer]. Thrive Questionnaire Date Thrive assessed: 12/26/24 I am a: Patient What is your living situation today?: I have a steady place to live Within the past 12 months, did the food you bought not last and you didn't have the money to get more?: Never true Within the past 12 months, did you worry whether your food would run out before you got money to buy more?: Never true Do you have trouble paying for medicines?: No Do you have trouble getting transportation to medical appointments?: No Do you have trouble paying your heating and electricity bill?: No Do you have trouble taking care of your child, family member or friend?: No Do you have trouble with day-to-day activities such as bathing, preparing meals, shopping, managing finances, etc.?: Yes Are you currently unemployed and looking for a job?: Yes Are you interested in more education?: Yes Please select the resources that you would like help with: Care for elder or disabled Currently or been in a relationship where the following occur: I choose not to answer THRIVE Score: 0 AUDIT C Alcohol Use Questionnaire (AUDIT-C) 1. How often do you have a drink containing alcohol?: 2-3 times a week 2. How many drinks containing alcohol do you have on a typical day when you are drinking?: 7 to 9 3. How often do you have six or more drinks on one occasion?: Weekly Total Score: 9 MICHELLE-7 AMB Questionnaire MICHELLE-7 Date MICHELLE - 7 assessed: 12/26/24 Feeling nervous, anxious, or on edge: 3 = Nearly every day Not being able to stop or control worryin = Not at all Worrying too much about different things: 3 = Nearly every day Trouble relaxin = Nearly every day Being so restless that it is hard to sit still: 3 = Nearly every day Becoming easily annoyed or irritable: 3 = Nearly every day Feeling afraid as if something awful might happen: 0 = Not at all Total MICHELLE-7 score (0-4 normal; 5-9 mild; 10-14 moderate; 15-21 severe): 15 Source: Developed by Drs. Claudio Huggins, Diana Brown, Jorge Murillo and colleagues, with an educational ron from [employer]. Physical exam (Primary Care) Vital Signs: Last Vital Signs Pulse 114 H 12/26/24 09:35 BP 168/96 H 12/26/24 09:35 Pulse Ox 98 12/26/24 09:35 Oxygen Delivery Method Room Air 12/26/24 09:35 BMI result Body Mass Index 40.1 Tobacco/Smoking Status: Tobacco use Status Tobacco use date assessed 12/26/24 12/26/24 09:37 Patient Tobacco Use Status Current someday Tobacco 12/26/24 09:37 Tobacco use type Cigarette 12/26/24 09:37 e-Cigarette/Vaping Use Never Used 12/26/24 09:37 PHQ-9: PHQ-9 Score PHQ-9: Total score 8 12/26/24 09:54 Thrive Assessment: Date of Thrive Assessment Date Thrive assessed 12/26/24 12/26/24 09:37 Currently or been in a relationship where the following occur: I choose not to answer Const General: alert; No acute distress Eyes Conjunctivae: conjunctivae normal Resp Auscultation: clear to auscultation bilaterally Cardio Rate: regular rate Rhythm: regular rhythm GI Inspection: Yes normal to inspection Extrem General: Yes normal to inspection and No edema Coding Level of Care Code Est Pt Level 4 (39565) Complex EM visit Add On G2211 Diagnoses Morbid (severe) obesity due to excess calories E66.01 Essential hypertension I10 Hypertension type: essential hypertension Gastroesophageal reflux disease without esophagitis K21.9 Esophagitis presence: without esophagitis Generalized anxiety disorder F41.1 Impaired fasting blood sugar R73.01 Assessment & Plan Assessment & Plan (1) Morbid (severe) obesity due to excess calories: Code(s): E66.01 - Morbid (severe) obesity due to excess calories Category: Medical Plan: Diet and exercise (2) Hypertension: Code(s): I10 - Essential (primary) hypertension Category: Medical Qualifiers: Hypertension type: essential hypertension Qualified Code(s): I10 - Essential (primary) hypertension Plan: Continue with blood pressure medication. Decrease salt intake and exercise patient on lisinopril 30 mg once a day and diltiazem 240 mg once a day reminded about the blood work (3) GERD (gastroesophageal reflux disease): Code(s): K21.9 - Gastro-esophageal reflux disease without esophagitis Category: Medical Qualifiers: Esophagitis presence: without esophagitis Qualified Code(s): K21.9 - Gastro-esophageal reflux disease without esophagitis Plan: Avoid the foods that causes that usually spicy foods, tomato products, juices, coffee, soda and foods that your sensitive to. After eating do not lie down, allow 3-4 hours before in lie down. And keep the head of bed above 30 degrees to avoid the acid from going up. On omeprazole (4) Generalized anxiety disorder: Comment: has the [facility] Q 2 weeks Code(s): F41.1 - Generalized anxiety disorder Category: Medical Plan: Continue with counseling and therapy (5) Impaired fasting blood sugar: Code(s): R73.01 - Impaired fasting glucose Category: Medical Plan: Decrease the amount of carbohydrate intake, pasta, bread, rice and potatoes are all sugar and that is aside from all the sweet stuff, remember that fruits are good but they are Sweet also. Reminded about the blood work Plan History of Present Illness The patient is a 54-year-old male presenting for follow-up of multiple chronic conditions including hypertension, GERD, and anxiety disorder. The patient has a history of morbid obesity and has recently achieved a 7-pound weight loss. He is currently on lisinopril 30 mg and diltiazem 240 mg daily for hypertension management. The patient reports experiencing nausea, salivation, and gastrointestinal discomfort after consuming beer and eating late, which led to a diagnosis of GERD. He was advised to increase omeprazole but admits to occasionally forgetting to take it. The patient has a history of anxiety disorder and has been attending counseling and therapy sessions. He recently visited the ER due to personal stressors and requested documentation to confirm the absence of sexually transmitted infections. In October, the patient visited urgent care for stomach issues and was advised to increase omeprazole for GERD management. He has not had recent blood work done and was reminded of its importance during the visit. The patient is up to date with his colonoscopy, having undergone the procedure in 2021, which revealed a tubular adenoma. Health Maintenance - Colonoscopy in 2021 with findings of tubular adenoma - Reminder for blood work to monitor chronic conditions Social History - Reports consuming alcohol, specifically beer, which exacerbates GERD symptoms - Engages in counseling and therapy for anxiety disorder Review of Systems - Gastrointestinal: Reports nausea, salivation, and gastrointestinal discomfort after consuming beer and eating late. Denies abdominal pain. - Cardiovascular: Denies chest pain or palpitations. - Respiratory: Denies sore throat or respiratory distress. Physical Exam - Cardiovascular: Blood pressure approximately 154/152 mmHg Results - Colonoscopy in 2021 revealed tubular adenoma Plan The patient is advised to continue with lisinopril and diltiazem for hypertension management. He should adhere to the prescribed omeprazole regimen to manage GERD symptoms and avoid alcohol consumption, particularly beer, which exacerbates his symptoms. A referral for a diagnostic test to evaluate for potential gastrointestinal bleeding or ulcers has been made, and the patient is advised to complete this test promptly. The patient is reminded to schedule and complete his overdue blood work to monitor his chronic conditions effectively. Continued engagement in counseling and therapy for anxiety disorder is recommended, and the patient is encouraged to discuss any medication side effects with his therapist. Patient was informed and verbally consented to the use of an ambient scribe for clinic note documentation during this visit. Discussion Notes During the visit, I discussed with the patient the importance of adhering to his medication regimen for hypertension and GERD. We reviewed the potential impact of alcohol on his gastrointestinal symptoms and the necessity of avoiding it to prevent exacerbation of GERD. I explained the need for a diagnostic test to rule out gastrointestinal bleeding or ulcers and emphasized the importance of completing his blood work to monitor his health status. We also discussed the continuation of counseling and therapy for his anxiety disorder and the need to communicate any medication side effects to his therapist. Patient Instructions - Continue taking lisinopril and diltiazem as prescribed for blood pressure control. - Take omeprazole as directed and avoid alcohol, especially beer. - Schedule and complete the recommended diagnostic test for gastrointestinal evaluation. - Complete overdue blood work to monitor health conditions. - Continue attending counseling sessions and discuss any medication side effects with your therapist. Orders: Orders FL upper GI series Today K21.9 - Gastro-esophageal reflux disease without esophagitis, R13.10 - Dysphagia, unspecified
--- OUTSIDE RECORDS SUMMARY | 2024-12-26 10:19 | XMS_ITS | Encounter Summary ---
Author Organization [employer] Address [address] [place] [address] [address] [place] [address] Care Team Providers Care Woolen Suiting Shrinker Name Role Phone Unavailable Primary Care Provider Unavailabl e Encounter Details Date Type Department Care Team (Latest Contact Info) Description 01/28/2021 Abstract [facility] CONVERSIONS Dental, Provider, DDS Social History [...]
== END 2024-12-26 10:09 | disposition home or self-care (01) ==
LOC: HO.HMCH 09:32
PROVIDERS: PCP Internal Medicine; Visit Provider Internal Medicine
DX: I10 Essential (primary) hypertension (principal); E66.01 Morbid (severe) obesity due to excess calories; Z68.41 Body mass index [BMI] 40.0-44.9, adult; K21.9 Gastro-esophageal reflux disease without esophagitis; F41.1 Generalized anxiety disorder; R73.01 Impaired fasting glucose

== ENCOUNTER → 2024-12-26 09:31 | Outpatient (BNVA) | payer OTHER, SELFPAY | PROVIDERS: PCP Internal Medicine; Visit Provider Internal Medicine | DX: E66.01 Morbid (severe) obesity due to excess calories (principal); I10 Essential (primary) hypertension; K21.9 Gastro-esophageal reflux disease without esophagitis; F41.1 Generalized anxiety disorder; R73.01 Impaired fasting glucose; F41.9 Anxiety disorder, unspecified; R13.10 Dysphagia, unspecified; Z68.41 Body mass index [BMI] 40.0-44.9, adult; Z79.899 Other long term (current) drug therapy | CPT/HCPCS: 96127; 99212 ==

== ENCOUNTER 2025-01-06 06:59 | Outpatient (REF) | payer OTHER, SELFPAY ==
[2025-01-06 07:14] LABS: MANUAL DIFF FLAG NO
[2025-01-06 07:26] LABS: Basophils Absolute Auto 0.1 X10*3/uL (0.0-0.2); Basophils Percent Auto 1.2 % (0-2); Eosinophils Absolute Auto 0.3 X10*3/uL (0.0-0.4); Eosinophils Percent Auto 5.1 % (0-4); Hematocrit 47.5 % (42.0-52.0); Hemoglobin 16.1 g/dl (14.0-18.0); Imm Gran Abs Auto 0.02 X10*3/uL (0.00-0.03); Imm Gran Pct Auto 0.3 % (0.0-0.4); Lymphocytes Absolute Auto 2.2 X10*3/uL (1.2-4.9); Mean Corpuscular HGB Conc 33.9 g/dl (31.0-36.0); Mean Corpuscular Volume 88.6 fL (80.0-98.0); Mean Platelet Volume 9.4 fL (9.4-12.4); Monocytes Absolute Auto 0.7 X10*3/uL (0.1-1.2); Monocytes Percent Auto 12.7 % (2-11); Neutrophils Absolute Auto 2.4 x10*3/uL (2.0-8.3); Neutrophils Percent Auto 42.7 % (45-73); Platelet Count 315 X10*3/uL (160-400); Red Blood Count 5.36 X10*6/uL (4.60-5.80); Red Cell Distribution Width 13.4 % (11.0-16.0); White Blood Count 5.7 X10*3/uL (4.8-10.8)
[2025-01-06 07:46] LABS: Alanine Aminotransferase 111 U/L (0-40); Albumin Level 4.4 g/dL (3.5-5.0); Alkaline Phosphatase 73 U/L (39-117); Anion Gap 16 (12-20); Aspartate Amino Transferase 93 U/L (5-37); Bilirubin Total 0.5 mg/dL (0.0-1.0); Blood Urea Nitrogen 13 mg/dL (9-16); Calcium 9.9 mg/dL (8.4-10.2); Carbon Dioxide 24 mmol/L (22-29); Chloride 103 mmol/L (96-108); Cholesterol 169 mg/dL (<200); Estimated Glomerular Filt Rate > 60; Glucose Random 109 mg/dL (60-115); HDL Cholesterol 37 mg/dL (>40); LDL Cholesterol Calculated 113 mg/dL (<100); Potassium 4.5 mmol/L (3.3-5.1); Sodium 138 mmol/L (135-145); Total Protein 7.5 g/dL (6.5-8.0); Triglycerides 98 mg/dL (<150)
[2025-01-06 08:04] LABS: Free T4 (Free Thyroxine) 1.22 ng/dL (0.71-1.85); Thyroid Stimulating Hormone 1.93 uIU/mL (0.32-4.0)
[2025-01-06 08:14] LABS: Folate 12.7 ng/mL (> or = 4.0); Prostate Specific Antigen Scr 0.99 ng/mL (<0.05-4.0); Vitamin B12 618 pg/mL (200-900)
[2025-01-06 09:53] LABS: Appearance Urine Clear; Color Urine Dark Yellow; Glucose Urine UA Negative (Negative); Leukocyte Esterase Urine Trace (Negative); Nitrite Urine Negative (Negative); PH 5.5 (5.0-9.0); Specific Gravity - Urine >= 1.030 (1.005-1.025); UMIC TRIGGER UACC YES; Urine Blood Negative (Negative); Urine Ketones 40 mg/dL (Negative); Urine Protein 30 (1+) mg/dL (Neg-Trace)
[2025-01-06 09:57] LABS: Bacteria Urine None Seen (None Seen); RBC Urine 0-2 /HPF (0-2); Squamous Epithelial Cell Urine 0-2 /HPF (0-2); WBC Urine 0-5 /HPF (0-5)
[2025-01-06 10:31] LABS: Estimated Average Glucose 117 mg/dL; Hemoglobin A1c % 5.7 % (<6.0)
== END 2025-01-06 07:00 | disposition home or self-care (01) ==
LOC: HO.LAB 06:59
PROVIDERS: PCP Internal Medicine; Visit Provider Internal Medicine
DX: Z12.5 Encounter for screening for malignant neoplasm of prostate (principal); Z13.1 Encounter for screening for diabetes mellitus; I10 Essential (primary) hypertension; E78.00 Pure hypercholesterolemia, unspecified
CPT/HCPCS: 36415; 80053; 80061; 81001; 82607; 82746; 83036; 84153; 84439; 84443; 85025

== ENCOUNTER 2025-03-01 08:55 | Outpatient (REF) | payer OTHER, SELFPAY ==
--- NOTE | ~2025-03-01 | US_ITS ---
CLINICAL HISTORY: R79.89 - Other specified abnormal findings of blood chemistry US abdomen complete Comparison: None provided Findings: The pancreas is obscured by gas. The aorta and inferior vena cava are normal caliber. The liver is normal in size and echotexture. Limited visualization due to significant bowel gas. There is no intrahepatic bile duct dilatation. The common duct is 3 mm in diameter. The gallbladder is normal. There is no sonographic Mcbride sign. The main portal vein is antegrade. The right kidney is 10.0 cm in length. The left kidney is 16.5 cm in length. Large lower pole cyst measuring 8.6 x 6.4 x 6.7 cm. This appears simple. The spleen is normal. No ascites. IMPRESSION: 1. Simple appearing lower pole left renal cyst. 2. Limited evaluation secondary to significant bowel-gas. This document has been electronically signed by: Jenny Palmer MD on 03/02/2025 16:36:49
--- OUTSIDE RECORDS SUMMARY | 2025-03-01 09:56 | XMS_ITS | Encounter Summary ---
Author Organization [employer] Address [address] [place] [address] [address] [place] [address] Care Team Providers Care Skills Instructor Name Role Phone Unavailable Primary Care Provider Unavailabl e Encounter Details Date Type Department Care Team (Latest Contact Info) Description 01/28/2021 Abstract [facility] CONVERSIONS Dental, Provider, DDS Social History [...]
--- OUTSIDE RECORDS SUMMARY | 2025-03-01 09:56 | XMS_ITS | Clinical Summary ---
Author Organization [facility] Address [address] [place] [address] Care Team Providers Care Supervisor Beam Department Name Role Phone Whitney Quiñones DEYA Primary Care Provider Source Comments PLEASE NOTE, if this patient [...] Plan of Treatment Not on file Insurance [place] Care Teams Supervisor Beam Department Relationship Specialty Start Date End Date Whitney Quiñones DMD [address] [place] [address] PCP - General 09/20/20
== END 2025-03-01 08:56 | disposition home or self-care (01) ==
LOC: HO.US 08:55
PROVIDERS: PCP Internal Medicine; Visit Provider Internal Medicine
DX: R79.89 Other specified abnormal findings of blood chemistry (principal)
CPT/HCPCS: 76700

== ENCOUNTER → 2025-03-01 08:58 | Outpatient (BNV) | payer OTHER, SELFPAY | PROVIDERS: PCP Internal Medicine; Visit Provider Radiology Diagnostic Radiology | DX: R79.89 Other specified abnormal findings of blood chemistry (principal); N28.1 Cyst of kidney, acquired | CPT/HCPCS: 76700 ==

== ENCOUNTER 2025-04-13 08:39 | Outpatient (REF) | payer OTHER, SELFPAY ==
--- NOTE | ~2025-04-13 | FL_ITS ---
EXAMINATION: XR FLUOROSCOPY UPPER GI WITH AIR CLINICAL INFORMATION: Dysphagia. COMPARISON: None available. TECHNIQUE: Routine upper GI air contrast study was performed in upright and lying position. FINDINGS: Following oral administration of thick barium and effervescent granules there is normal propagation bolus from the oral cavity through the pharynx, esophagus into stomach without any evidence of obstruction, narrowing or stricture. There is no extrinsic compression. There is minimal retention of barium in the valleculae and piriform sinuses which clears with subsequent dry swallowing. In supine and prone lying position there is a small sliding hiatal hernia with mild gastroesophageal reflux. The mucosal pattern of the stomach, duodenal bulb and sweep is normal. The course and caliber of the stomach is normal. FLUOROSCOPY TIME: 2 minutes 28 seconds DOSE AREA PRODUCT: 3004 uGy-m2 (microgray-meter squared) FL/FL upper GI w air IMPRESSION: Small sliding hiatal hernia with mild gastroesophageal reflux. Electronically signed by: Mark Jensen MD 04/13/2025 11:35 AM EDT
--- OUTSIDE RECORDS SUMMARY | 2025-04-13 08:59 | XMS_ITS | Encounter Summary ---
Author Organization [employer] Address [address] [place] [address] [address] [place] [address] Care Team Providers Care Instructional Technology Teacher Name Role Phone Unavailable Primary Care Provider Unavailabl e Encounter Details Date Type Department Care Team (Latest Contact Info) Description 01/28/2021 Abstract [facility] CONVERSIONS Dental, Provider, DDS Social History Tobacco [...]
--- OUTSIDE RECORDS SUMMARY | 2025-04-13 09:00 | XMS_ITS | Encounter Summary ---
Author Organization [employer] Address [address] [facility] [address] [facility] [address] [place] [address] Care Team Providers Care Blade Balancer Name Role Phone Unavailable Primary Care Provider [...] (Late st Contact Info) Description 07/28/2022 Telephone [facility] [address] [place] [address] Tripp Garcia DMD [address] [place] [address] Appointment (Patient called in today 08/05 to [...]
--- OUTSIDE RECORDS SUMMARY | 2025-04-13 09:00 | XMS_ITS | Encounter Summary ---
Author Organization [employer] Address [address] [place] [address] Care Team Providers Care Filter Press Pumper Name Role Phone Unavailable Primary Care Provider Unavailabl e Encounter Details Date Type Department Care Team (Late st Contact Info) Description 06/10/2022 Abstract [facility] [address] [place] [address] Dental, Provider, DDS Social History Tobacco Use [...]
--- OUTSIDE RECORDS SUMMARY | 2025-04-13 09:00 | XMS_ITS | Clinical Summary ---
Author Organization [employer] Address [address] [place] [address] [address] [place] [address] Care Team Providers Care Senior Electrical Controls Engineer Name Role Phone Unavailable Primary Care [...] Panel 1971 SDOH Screening 1971 Sigmoidoscopy 1971 Disability Screening 1971 Alcohol/Substance Use Screening 1983 Hepatitis C Screening 11/21/1989 Hepatitis A Vaccines (1 of 2 - Risk 2-dose series) 11/21/1990 Hepatitis B Vaccines (1 of 3 - 19+ 3-dose series) 11/21/1990 Pneumococcal Vaccine: 50+ Years (1 of 1 - PCV) 11/21/2021 Zoster Vaccines (1 of 2) 11/21/2021 Tobacco Screening 09/29/2023 09/28/2022 COVID-19 Vaccine (3 - 2024- season) 2025 11/16/2020, 10/26/2020 Influenza Vaccine (#1) 2025 2, 04/30/2021, 05/22/2020, Additional history exists DTaP/Tdap/Td [...] patient's age to complete this topic Meningococcal B Vaccine Aged Out No l onger eligible based on patient's age to complete [...]
--- OUTSIDE RECORDS SUMMARY | 2025-04-13 09:00 | XMS_ITS | Encounter Summary ---
Author Organization [employer] Address [address] [place] [address] [address] [place] [address] Care Team Providers Care Flanging Operator Name Role Phone Unavailable Primary Care [...]
--- OUTSIDE RECORDS SUMMARY | 2025-04-13 09:00 | XMS_ITS | Clinical Summary ---
Author Organization [facility] Address [address] [place] [address] Care Team Providers Care Dust Mixer Name Role Phone Whitney Quiñones DEYA Primary Care Provider [phone] Source Comments PLEASE NOTE, if this patient [...] Plan of Treatment Not on file Insurance [place] MED[place] DENT[place] Care Teams Dust Mixer Relationship Specialty Start Date End Date Whitney Quiñones DMD [address] [place] [address] PCP - General 09/20/20
--- OUTSIDE RECORDS SUMMARY | 2025-04-13 09:00 | XMS_ITS | Encounter Summary ---
Author Organization [employer] Address [address] [facility] [address] [place] [address] Care Team Providers Care [place] Sanitarian Name Role Phone Unavailable Primary Care Provider Unavailabl e Reason for Visit * Reason Onset Date Comments Appointment 08/25/2022 Patient had appt 08/26 in [facility] but is unable to do Wed. He prefers a Wednesday. Explained to patient that Oral Surgery only comes 1 time a week. Can work with a Tues in [facility]. Would like to rs appt for [facility] due to convenience in schedule DR Encounter Details Date Type Department Care Team (Late st Contact Info) Description 08/25/2022 Telephone [facility] ADULT DENTAL [address] [place] [address] Tripp Gacria, DMD [address] [place] [address] Appointment (Patient had appt 08/26 in [facility] but is unable to do Wed. He prefers a Wednesday. Explained to patient that Oral Surgery only comes 1 time a week. Can work with a Tues in [facility]. Would like to rs appt for [facility] due to convenience in schedule ) [...] * Telephone Encounter - Patricia Vargas - 08/25/2022 3:01 PM EST Patient had appt 08/26 in [facility] but is unable to do Wed. He prefers a Wednesday. Explained to patient that Oral Surgery only comes 1 time a week. Can work with a Tues in [facility]. [facility] documented in this encounter Plan of Treatment Not on file documented as of this encounter Visit Diagnoses Not on filedocumented in this encounter
== END 2025-04-13 08:40 | disposition home or self-care (01) ==
LOC: HO.XRAY 08:39
PROVIDERS: PCP Internal Medicine; Visit Provider Internal Medicine
DX: R13.10 Dysphagia, unspecified (principal); K21.9 Gastro-esophageal reflux disease without esophagitis
CPT/HCPCS: 74246

== ENCOUNTER → 2025-04-13 08:41 | Outpatient (BNV) | payer OTHER, SELFPAY | PROVIDERS: PCP Internal Medicine; Visit Provider Radiology Diagnostic Radiology | DX: K44.9 Diaphragmatic hernia without obstruction or gangrene (principal) | CPT/HCPCS: 74246 ==

== ENCOUNTER 2025-04-26 10:35 | Outpatient (AMB) | payer OTHER, SELFPAY ==
[2025-04-26 10:37] VITALS: BP 112/82; PULSE 96; TEMP 36.2; O2SAT 97; BMI 31.5
--- NOTE | 2025-04-26 10:37 | MHC.PC.OV ---
Vital Signs 04/26/25 10:37 Height 5 ft 7 in Weight 201 lb 2 oz BMI 31.5 BP 112/82 Blood Pressure Location Lt brachial Position Sitting Pulse 96 Pulse Source Pulse Oximeter Temp 97.1 F Temp Source Temporal Artery Scan Pulse Oximetry (%) 97 Oxygen Delivery Method Room Air Intake Visit Reasons: follow up 3 mnth Allergies No Known Allergies (No Known Allergies*) Allergy (Verified 04/26/25 10:40) Medication List - Last Reconciled 04/26/25 by Tenzin Vallecillo MD alprazolam 0.25 mg PO DAILY blood pressure monitor As directed buspirone 5 mg PO BID cane As directed [email or web address],med As directed 20-30 mm HG cyclobenzaprine 5 mg PO BEDTIME diltiazem HCl CD 240 mg PO DAILY docusate sodium 100 mg PO BID PRN [Hand held shower wand As directed] lisinopril 30 mg PO DAILY loratadine 10 mg PO DAILY meloxicam 15 mg PO DAILY omeprazole 40 mg PO DAILY quetiapine 50 mg PO BEDTIME sertraline 100 mg PO DAILY [shower chair As directed] walker (Ultra-Light Rollator misc) As directed Tobacco use date assessed: 04/26/25 Dental Screening Dental Screen Date: 04/26/25 Did you have a dental visit in the last 12 months?: No Did you have a dental problem in the last 6 months where you did not have access to dental care?: No Was dental information given to patient?: Patient has dentist [facility] Medical History Obesity (BMI 30.0-34.9) Neck pain Back pain Low back pain Colon cancer screening Lumbar degenerative disc disease Anxiety and depression GERD (gastroesophageal reflux disease) Obstructive sleep apnea Erectile dysfunction Hypertension Unilateral post-traumatic osteoarthritis, right knee Insomnia Surgical History S/P right knee arthroscopy No pertinent past surgical history Family History Father Stroke Coronary artery disease Mother Alive and well Family/Other Coronary artery disease Social History Housing: Apartment Alcohol intake: current Alcohol intake frequency: holidays/special occasions only Comment: QD 7 drinks Patient Tobacco Use Status: Former Tobacco user Tobacco use type: Cigarette Cigarettes Per Day: 6 Years Smoked: 4 cigarettes a day e-Cigarette/Vaping Use: Never Used Second Hand Smoke Exposure: No service: No Current occupational status: unemployed Cognitive needs: No Hearing needs: No Vision needs: No Questionnaire PHQ-9 Over the last 2 weeks, how often have you been bothered by any of the following problems? 1. Little interest or pleasure in doing things: nearly every day 2. Feeling down, depressed, or hopeless: several days 3. Trouble falling or staying asleep, or sleeping too much: nearly every day 4. Feeling tired or having little energy: not at all 5. Poor appetite or overeating: not at all 6. Feeling bad about yourself - or that you are a failure or have let yourself or your family down: not at all 7. Trouble concentrating on things, such as reading the newspaper or watching television: several days 8. Moving or speaking so slowly that other people could have noticed. Or the opposite - being so fidgety or restless that you have been moving around a lot more than usual: not at all 9. Thoughts that you would be better off or of hurting yourself in some way: not at all Total score: 8 Source: Developed by Drs. Claudio Huggins, Diana Brown, Jorge Murillo and colleagues, with an educational ron from [employer]. Thrive Questionnaire Date Thrive assessed: 12/26/24 I am a: Patient What is your living situation today?: I have a steady place to live Within the past 12 months, did the food you bought not last and you didn't have the money to get more?: Never true Within the past 12 months, did you worry whether your food would run out before you got money to buy more?: Never true Do you have trouble paying for medicines?: No Do you have trouble getting transportation to medical appointments?: No Do you have trouble paying your heating and electricity bill?: No Do you have trouble taking care of your child, family member or friend?: No Do you have trouble with day-to-day activities such as bathing, preparing meals, shopping, managing finances, etc.?: Yes Are you currently unemployed and looking for a job?: Yes Are you interested in more education?: Yes Please select the resources that you would like help with: Care for elder or disabled Currently or been in a relationship where the following occur: I choose not to answer THRIVE Score: 0 AUDIT C Alcohol Use Questionnaire (AUDIT-C) 1. How often do you have a drink containing alcohol?: Never 3. How often do you have six or more drinks on one occasion?: Never Total Score: 0 MICHELLE-7 AMB Questionnaire MICHELLE-7 Date MICHELLE - 7 assessed: 12/26/24 Feeling nervous, anxious, or on edge: 3 = Nearly every day Not being able to stop or control worryin = Not at all Worrying too much about different things: 3 = Nearly every day Trouble relaxin = Nearly every day Being so restless that it is hard to sit still: 3 = Nearly every day Becoming easily annoyed or irritable: 3 = Nearly every day Feeling afraid as if something awful might happen: 0 = Not at all Total MICHELLE-7 score (0-4 normal; 5-9 mild; 10-14 moderate; 15-21 severe): 15 Source: Developed by Drs. Claudio Huggins, Diana Brown, Jorge Murillo and colleagues, with an educational ron from [employer]. Physical exam (Primary Care) Vital Signs: Last Vital Signs Temp 97.1 F 04/26/25 10:37 Pulse 96 04/26/25 10:37 BP 112/82 04/26/25 10:37 Pulse Ox 97 04/26/25 10:37 Oxygen Delivery Method Room Air 04/26/25 10:37 BMI result Body Mass Index 31.5 Tobacco/Smoking Status: Tobacco use Status Tobacco use date assessed 04/26/25 04/26/25 10:41 Patient Tobacco Use Status Former Tobacco user 04/26/25 10:41 Tobacco use type Cigarette 04/26/25 10:41 e-Cigarette/Vaping Use Never Used 04/26/25 10:41 PHQ-9: PHQ-9 Score PHQ-9: Total score 8 04/26/25 17:25 Thrive Assessment: Date of Thrive Assessment Date Thrive assessed 12/26/24 04/26/25 10:41 Currently or been in a relationship where the following occur: I choose not to answer Office Procedures Flu Questionnaire Does the patient have a severe egg allergy?: No Does the patient have severe life threatening allergies?: No Does the patient have a fever or illness today?: No Has the patient ever had Guillain-[place] Syndrome?: No Has the patient ever had any past reaction to a flu shot?: No Immunizations Fluarix [id number] (PF) 45 mcg (15 mcg x 3)/0.5 mL IM syringe Performing Provider: Tenzin Vallecillo MD [facility] Administered by: LUZ Jay on 04/26/25 11:04 Dose Route Admin Location Dispensed Lot Number Expiration Date ND Thread Marker 0.5 mL IM Left Deltoid 0.5 mL [id number] 01/08/26 [id number] [employer] Given Date VIS Provided VIS Publication Date 04/26/25 Single Vaccine 24 Eligibility Eligibility Date Funding Source Not [facility] Eligible 04/26/25 Private Coding Level of Care Code Est Pt Level 4 (72595) Complex EM visit Add On G2211 Diagnoses Essential hypertension I10 Hypertension type: essential hypertension Impaired fasting blood sugar R73.01 Gastroesophageal reflux disease without esophagitis K21.9 Esophagitis presence: without esophagitis Generalized anxiety disorder F41.1 Assessment & Plan Assessment & Plan (1) Hypertension: Code(s): I10 - Essential (primary) hypertension Category: Medical Qualifiers: Hypertension type: essential hypertension Qualified Code(s): I10 - Essential (primary) hypertension Plan: Continue with blood pressure medication. Decrease salt intake and exercise with weight loss continue to monitor blood pressure. If consistently below 120 systolic blood pressure then will adjust medication. (2) Impaired fasting blood sugar: Code(s): R73.01 - Impaired fasting glucose Category: Medical Plan: Decrease the amount of carbohydrate intake, pasta, bread, rice and potatoes are all sugar and that is aside from all the sweet stuff, remember that fruits are good but they are Sweet also. (3) GERD (gastroesophageal reflux disease): Code(s): K21.9 - Gastro-esophageal reflux disease without esophagitis Category: Medical Qualifiers: Esophagitis presence: without esophagitis Qualified Code(s): K21.9 - Gastro-esophageal reflux disease without esophagitis Plan: Avoid the foods that causes that usually spicy foods, tomato products, juices, coffee, soda and foods that your sensitive to. After eating do not lie down, allow 3-4 hours before in lie down. And keep the head of bed above 30 degrees to avoid the acid from going up. (4) Generalized anxiety disorder: Comment: has the [facility] Q 2 weeks Code(s): F41.1 - Generalized anxiety disorder Category: Medical Plan: Continue follow-up with counseling and therapy Plan History of Present Illness The patient is a 54-year-old male presenting for a follow-up visit. He has a history of hypertension, which is currently well-managed with medication, as indicated by a recent blood pressure reading of 120/80 mmHg. The patient also reports a significant weight loss of 60 pounds, which has positively impacted his hypertension management. The patient has been diagnosed with generalized anxiety disorder, which is being monitored. He also has glucose intolerance, with a fasting blood sugar level of 109 mg/dL and a hemoglobin A1c of 5.7%. The patient reports dysphagia, and an upper GI series revealed a small sliding hiatal hernia with mild reflux. An abdominal ultrasound showed a kidney cyst, which is currently not causing any issues. He has severe bilateral knee osteoarthritis, which has been managed with orthopedic follow-up. The weight loss has likely contributed to some relief in symptoms associated with osteoarthritis. The patient has elevated liver enzymes, which are being monitored, and a follow-up blood test is planned in three months. His last colon cancer screening was in January 2022, and he is due for a follow-up. Health Maintenance - Colon cancer screening last performed in January 2022, follow-up needed. - Flu vaccination discussed and planned for administration. - Weight management through dietary changes and increased physical activity. Social History - Diet: Increased intake of chicken and vegetables, reduced alcohol consumption. - Weight Management: Achieved a 60-pound weight loss through dietary changes. Review of Systems - Cardiovascular: Denies dizziness or syncope. - Gastrointestinal: Reports dysphagia, denies significant abdominal pain. - Musculoskeletal: Reports improvement in knee pain with weight loss. Physical Exam - Cardiovascular: Blood pressure 120/80 mmHg, regular rate and rhythm. Results - Labs: Hemoglobin A1c 5.7%, fasting glucose 109 mg/dL, elevated liver enzymes. - Imaging: Upper GI series showed small sliding hiatal hernia with mild reflux. - Imaging: Abdominal ultrasound revealed a kidney cyst. Plan Patient was informed and verbally consented to the use of an ambient scribe for clinic note documentation during this visit. 1. Hypertension The patient's hypertension is currently well-managed with medication, as evidenced by a blood pressure reading of 120/80 mmHg. Continued monitoring of blood pressure is recommended, with adjustments to medication as necessary based on future readings. 2. Generalized Anxiety Disorder The patient is being monitored for generalized anxiety disorder, with no changes in management discussed during this visit. 3. Glucose Intolerance The patient has glucose intolerance, with a fasting glucose level of 109 mg/dL and a hemoglobin A1c of 5.7%. Dietary modifications and weight management are recommended to improve glucose control. 4. Dysphagia The patient reports dysphagia, and an upper GI series revealed a small sliding hiatal hernia with mild reflux. Management includes monitoring symptoms and dietary adjustments to alleviate reflux. 5. Severe Bilateral Knee Osteoarthritis The patient has severe bilateral knee osteoarthritis, which is being managed with orthopedic follow-up. Weight loss has contributed to symptom relief, and continued weight management is advised. 6. Kidney Cyst An abdominal ultrasound revealed a kidney cyst, which is currently asymptomatic and requires no intervention. 7. Elevated Liver Enzymes The patient has elevated liver enzymes, and a follow-up blood test is planned in three months to monitor liver function. 8. Preventative Care: Colon Cancer Screening The patient is due for a follow-up colon cancer screening, as the last test was performed in January 2022. 9. Preventative Care: Flu Vaccination The patient is scheduled to receive a flu vaccination during this visit. Discussion Notes During the visit, we discussed the management of hypertension, which is currently well-controlled. The importance of monitoring blood pressure and adjusting medication as needed was emphasized. We also reviewed the patient's glucose intolerance and recommended dietary changes to improve glucose control. The patient was informed about the findings of the upper GI series and the presence of a hiatal hernia with mild reflux, advising dietary adjustments to manage symptoms. The significance of weight loss in alleviating knee osteoarthritis symptoms was acknowledged, and continued weight management was encouraged. We also discussed the need for follow-up on elevated liver enzymes and the scheduling of a colon cancer screening. The patient agreed to receive a flu vaccination today. Patient Instructions - Continue monitoring blood pressure at home and report any significant changes. - Follow dietary recommendations to manage glucose levels and reflux symptoms. - Maintain current weight management strategies to support joint health. - Schedule a follow-up appointment for liver function tests in three months. - Receive flu vaccination today. Orders: Orders Comprehensive Met. Panel Today I10 - Essential (primary) hypertension Free T4 (Free Thyroxine) Today I10 - Essential (primary) hypertension Thyroid Stimulating Hormone 3 Months I10 - Essential (primary) hypertension Influenza [id number] Immunization Today Z23 - Encounter for immunization Complete Blood Count Auto Diff 3 Months I10 - Essential (primary) hypertension Hemoglobin A1c 3 Months I10 - Essential (primary) hypertension Lipid Panel 3 Months E78.00 - Pure hypercholesterolemia, unspecified, I10 - Essential (primary) hypertension Prostate Specific Antigen Scr 3 Months I10 - Essential (primary) hypertension Medications: New sennosides-docusate sodium 8.6-50 mg (Senna Plus) 2 tab-caps (2 x 8.6-50 mg) PO BEDTIME 60 caps 3RF Discontinued docusate sodium Discontinued Reason: Doctor's Order 100 mg PO BID PRN 60 caps 1RF constipation
--- OUTSIDE RECORDS SUMMARY | 2025-04-26 13:08 | XMS_ITS | Encounter Summary ---
Author Organization [employer] Address [address] [place] [address] Care Team Providers Care Poultry Farmer Name Role Phone Unavailable Primary Care Provider Unavailabl e Encounter Details Date Type Department Care Team (Late st Contact Info) Description 06/10/2022 Abstract [facility] ADULT DENTAL [address] [place] [address] Dental, Provider, DDS Social History Tobacco Use [...]
--- OUTSIDE RECORDS SUMMARY | 2025-04-26 13:08 | XMS_ITS | Encounter Summary ---
Author Organization [employer] Address [address] [place] [address] [address] [place] [address] Care Team Providers Care Thiokol Operator Name Role Phone Unavailable Primary Care Provider Unavailabl e Encounter Details Date Type Department Care Team (Latest Contact Info) Description 03/09/2022 Abstract [facility] CON[facility] Dental, Provider, DDS Social History [...]
--- OUTSIDE RECORDS SUMMARY | 2025-04-26 13:08 | XMS_ITS | Encounter Summary ---
Author Organization [employer] Address [address] [place] [address] [address] [place] [address] Care Team Providers Care Needle Maker Name Role Phone Unavailable Primary Care Provider Unavailabl e Encounter Details Date Type Department Care Team (Latest Contact Info) Description 01/28/2021 Abstract [facility] Dental, Provider, DDS Social History [...]
--- OUTSIDE RECORDS SUMMARY | 2025-04-26 13:08 | XMS_ITS | Encounter Summary ---
Author Organization [employer] Address [address] [place] [address] Care Team Providers Care White Washer Name Role Phone Unavailable Primary Care Provider Unavailabl e Reason for Visit * Reason Onset Date Comments Appointment 08/25/2022 Patient had appt 08/26 in [facility] but is unable to do Wed. He prefers a Wednesday. Explained to patient that Oral Surgery only comes 1 time a week. Can work with a Tues in [facility]. Would like to rs appt for [facility] due to convenience in schedule DR Encounter Details Date Type Department Care Team (Late st Contact Info) Description 08/25/2022 Telephone [facility] ADULT DENTAL [address] [place] [address] Tripp Garcia, DMD [address] [place] [address] Appointment (Patient had appt 08/26 in [facility] but is unable to do Wed. He prefers a Wednesday. Explained to patient that Oral Surgery only comes 1 time a week. Can work with a Tues in [facility]. Would like to rs appt for [facility] due to convenience in schedule ) Social [...] PM EST Patient had appt 08/26 in [facility] but is unable to do Wed. He prefers a Wednesday. Explained to patient that Oral Surgery only comes 1 time a week. Can work with a Tues in [facility] to convenience in schedule documented in this encounter Plan of Treatment Not on file documented as of this encounter Visit Diagnoses Not on filedocumented in this encounter
--- OUTSIDE RECORDS SUMMARY | 2025-04-26 13:08 | XMS_ITS | Clinical Summary ---
Author Organization [facility] Address [address] [place] [address] Care Team Providers Care Biomaterials Engineer Name Role Phone Whitney Quiñones DEYA Primary Care Provider [phone] Source Comments PLEASE NOTE, if this patient [...] Plan of Treatment Not on file [place] Care Teams Biomaterials Engineer Relationship Specialty Start Date End Date Whitney Quiñones DMD [address] [place] [address] PCP - General 09/20/20
--- OUTSIDE RECORDS SUMMARY | 2025-04-26 13:08 | XMS_ITS | Clinical Summary ---
Author Organization [employer] Address [address] [place] [address] [address] [place] [address] Care Team Providers Care Transit Clerk Name Role Phone Unavailable Primary Care [...]
--- OUTSIDE RECORDS SUMMARY | 2025-04-26 13:08 | XMS_ITS | Encounter Summary ---
Author Organization [employer] Address [address] [facility] [address] [place] [address] Care Team Providers Care Bundler Name Role Phone Unavailable Primary Care Provider [...] (Late st Contact Info) Description 07/28/2022 Telephone [facility]ULT D[facility] [address] [place] [address] Tripp Garcia DMD [address] [place] [address] Appointment (Patient called in today 08/05 to [...]
== END 2025-04-26 11:08 | disposition home or self-care (01) ==
LOC: HO.HMCH 10:35
PROVIDERS: PCP Internal Medicine; Visit Provider Internal Medicine
DX: I10 Essential (primary) hypertension (principal); R73.01 Impaired fasting glucose; K21.9 Gastro-esophageal reflux disease without esophagitis; F41.1 Generalized anxiety disorder; Z23 Encounter for immunization

== ENCOUNTER → 2025-04-26 10:35 | Outpatient (BNVA) | payer OTHER, SELFPAY | PROVIDERS: PCP Internal Medicine; Visit Provider Internal Medicine | DX: I10 Essential (primary) hypertension (principal); R73.01 Impaired fasting glucose; K21.9 Gastro-esophageal reflux disease without esophagitis; F41.1 Generalized anxiety disorder; M17.0 Bilateral primary osteoarthritis of knee; R79.89 Other specified abnormal findings of blood chemistry; R13.10 Dysphagia, unspecified; N28.1 Cyst of kidney, acquired; Z23 Encounter for immunization | CPT/HCPCS: 90471; 90656; 96127; 99212 ==